=== PATIENT | male | born 1965 ===

== ENCOUNTER 2018-05-10 12:58 | Inpatient (IN) | payer MEDICAID, OTHER ==
[2018-05-10] MEDS ORDERED: Dexamethasone 10 MG in Sodium Chloride 0.9% 50 ML IV ONE (13:49)
[2018-05-10 14:25] LABS: BASO % 0.4 % (0.0-2.0); EOS # 0.1 K/uL (0.0-0.7); HEMOGLOBIN 14.3 g/dL (12.0-18.0); LYMPH # 0.9 K/uL (1.0-4.3); LYMPH % 14.2 % (20.0-40.0); MEAN CORPUSCULAR HEMOGLOBIN 31.7 pg (27.0-31.0); MEAN CORPUSCULAR HGB CONC 34.5 g/dL (33.0-37.0); MEAN PLATELET VOLUME 8.1 fl (7.2-11.7); MONO # 0.7 K/uL (0.0-0.8); MONO % 11.1 % (0.0-10.0); NEUT # 4.9 K/uL (1.8-7.0); NEUT % 72.3 % (50.0-75.0); RBC 4.52 Mil/uL (4.40-5.90); RED CELL DISTRIBUTION WIDTH 13.6 % (11.5-14.5); WHITE BLOOD COUNT 6.7 K/uL (4.8-10.8)
[2018-05-10 14:28] LABS: INR 0.9; PROTHROMBIN TIME 10.4 Seconds (9.8-13.1)
[2018-05-10 14:33] LABS: BLOOD UREA NITROGEN 21 mg/dl (9-20); CALCIUM 9.2 mg/dL (8.4-10.2); GFR NON-AFRICAN AMERICAN > 60
--- NOTE | 2018-05-10 15:45 | MRI ---
Date of service: 05/10/2018 PROCEDURE: MR LUMBAR SPINE WITHOUT CONTRAST HISTORY: cord compression COMPARISON: None available. TECHNIQUE: Multiecho multiplanar sequences were performed through the lumbar spine without the use of intravenous contrast. FINDINGS: Normal lumbar lordosis. Vertebral body heights are preserved. Marrow signal unremarkable. Conus medullaris unremarkable at the level of T12 Paraspinal soft tissues are unremarkable. T12-L1: No disc herniation, spinal canal stenosis or neural foraminal narrowing. L1-2: No disc herniation, spinal canal stenosis or neural foraminal narrowing. L2-3: No disc herniation, spinal canal stenosis or neural foraminal narrowing. L3-4: Mild degenerative disc changes noted. Small posterior disc bulge noted. No disc herniation, spinal canal stenosis or neural foraminal narrowing. L4-5: Mild degenerative disc changes. Small posterior disc bulge noted contains small focus of high attenuation likely represent annular tear. No disc herniation, spinal canal stenosis or neural foraminal narrowing. L5-S1: Small posterior disc bulge. [place]-pfskgpsw degenerative disc changes and mild narrowing of the intervertebral disc space. No disc herniation, spinal canal stenosis or neural foraminal narrowing. OTHER FINDINGS: None. IMPRESSION: No evidence of significant spinal or neural foraminal narrowing Irxi-wi-notznhoz degenerative disc changes. Small posterior disc bulge at L3-L4, L4-L5 and L5-S1 without evidence of significant spinal or neural foraminal narrowing. No evidence of compression on the conus medullaris.
--- NOTE | 2018-05-10 16:48 | ED PDOC ---
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 NOTES URINARY HESITANCE. DENIES ANY FREQUENCY/BURNING. NOTES NUMBNESS AND WEAKNESS TO RIGHT LEG NEW SINCE YESTERDAY.) Past Medical History Reviewed: Historical Data, Nursing Documentation, Vital Signs Vital Signs: Last Vital Signs Temp 98.4 F 05/10/18 13:08 Pulse 88 05/10/18 13:08 Resp 20 05/10/18 13:08 BP 160/71 H 05/10/18 13:08 Pulse Ox 98 05/10/18 13:08 - Family History Family History: States: No Known Family Hx - Home Medications Home Medications: Ambulatory Orders Medication Instructions Recorded No Known Home Med 05/10/18 - Allergies Allergies/Adverse Reactions: Allergies Allergy/AdvReac Type Severity Reaction Status Date / Time No Known Allergies Allergy Verified 05/10/18 13:08 Review of Systems ROS Statement: Except As Marked, All Systems Reviewed And Found Negative Physical Exam - Reviewed Nursing Documentation Reviewed: Yes Vital Signs Reviewed: Yes - Physical Exam Appears: Positive for: Well, Non-toxic, No Acute Distress Head Exam: Positive for: ATRAUMATIC, NORMAL INSPECTION, NORMOCEPHALIC Skin: Positive for: Normal Color, Warm, DRY Eye Exam: Positive for: EOMI, Normal appearance, PERRL ENT: Positive for: Normal ENT Inspection Neck: Positive for: Normal, Painless ROM Cardiovascular/Chest: Positive for: Regular Rate, Rhythm Respiratory: Positive for: CNT, Normal Breath Sounds Gastrointestinal/Abdominal: Positive for: Normal Exam, Soft Back: Positive for: Normal Inspection Rectal: Positive for: Other (PATIENT NOTEDS NUMBNESS CYNTHIA-RECTAL REGION.) Extremity: Positive for: Normal ROM, Other (WEAKNESS NOTED RIGHT LOWER EXTREMITY WITH DORSOFLEXION/PLANTARFLEXION.) Neurologic/Psych: Positive for: Alert, Oriented - Laboratory Results Result Diagrams: 05/10/18 14:10 05/10/18 14:10 - ECG O2 Sat by Pulse Oximetry: 98 - Progress ED Course And Treament: INITIAL BLADDE SCAN 291ML DECADRON 10 MG IV X 1 DOSE IMPRESSION: No evidence of significant spinal or neural foraminal narrowing Uayv-ru-vttiugge degenerative disc changes. Small posterior disc bulge at L3-L4, L4-L5 and L5-S1 without evidence of significant spinal or neural foraminal narrowing. No evidence of compression on the conus medullaris. MRI OBTAINED IN ED: GARNER CATHETER PLACED PATIENT STILL UNABLE TO URINATE. 1600 CC URINE NOTED IN GARNER CATHETER D/W DR. BURGOS. RECOMMENDS ADMISSION FOR MRI OF BRAIN AND T SPINE. WE WILL CT HEAD/T SPINE AT THIS TIME. d/w dr. armstrong d/w dr. Sheehan at request of Dr. Armstrong. He has reviewed films and notes no cord compression on studies. Disposition - Clinical Impression Clinical Impression: Urinary retention, Paresthesia, Right leg weakness, Back pain - Patient ED Disposition Is Patient to be Admitted: No - Disposition Disposition Time: 18:13 Condition: FAIR - Pt Status Changed To: Hospital Disposition Of: Observation
[2018-05-10 16:52] LABS: SQUAMOUS EPITHIAL < 1 /hpf (0-5); URINE BACTERIA RARE (<OCC); URINE BILIRUBIN NEGATIVE (NEGATIVE); URINE BLOOD NEGATIVE (NEGATIVE); URINE CLARITY SLIGHTY-CLOUDY (Clear); URINE COLOR YELLOW (YELLOW); URINE GLUCOSE (UA) NEG (Normal); URINE LEUKOCYTE ESTERASE NEG Leu/uL (Negative); URINE PROTEIN NEGATIVE (NEGATIVE)
--- NOTE | 2018-05-10 18:01 | CT ---
Date of service: 05/10/2018 PROCEDURE: CT HEAD WITHOUT CONTRAST. HISTORY: LEG WEAKNESS COMPARISON: None available. TECHNIQUE: Axial computed tomography images were obtained through the head/brain without intravenous contrast. Radiation dose: Total exam DLP = 885.7 mGy-cm. This CT exam was performed using one or more of the following dose reduction techniques: Automated exposure control, adjustment of the mA and/or kV according to patient size, and/or use of iterative reconstruction technique. FINDINGS: HEMORRHAGE: No intracranial hemorrhage. BRAIN: No mass effect or edema. No atrophy or chronic microvascular ischemic changes. VENTRICLES: Unremarkable. No hydrocephalus. CALVARIUM: Unremarkable. PARANASAL SINUSES: Bilateral ethmoid and maxillary sinus mucosal thickening. MASTOID AIR CELLS: Unremarkable as visualized. No inflammatory changes. OTHER FINDINGS: None. IMPRESSION: No acute intracranial pathology. Sinus disease as described above.
--- NOTE | 2018-05-10 18:03 | CT ---
Date of service: 05/10/2018 PROCEDURE: CT Thoracic Spine without contrast HISTORY: RIGHT LEG WEAKNESS/URINARY RETENTION/LUMBAR PAIN COMPARISON: None available. TECHNIQUE: Axial computed tomography images were obtained of the thoracic spine without intravenous contrast. Coronal and sagittal reformatted images were created and reviewed. Radiation dose: Total exam DLP = 717.2 mGy-cm. This CT exam was performed using one or more of the following dose reduction techniques: Automated exposure control, adjustment of the mA and/or kV according to patient size, and/or use of iterative reconstruction technique. FINDINGS: VERTEBRAE: Unremarkable. No fracture. Normal alignment. DISCS/SPINAL CANAL/NEURAL FORAMINA: Within the limits of the CT technique, no disc herniation seen. No central canal or neural foraminal stenosis.. PARASPINAL SOFT TISSUES: Unremarkable. OTHER FINDINGS: Unremarkable. IMPRESSION: Unremarkable CT of the thoracic spine.
--- NOTE | 2018-05-10 18:37 | CP.PCM.PN ---
Subjective - Date & Time of Evaluation Date of Evaluation: 05/10/18 Time of Evaluation: 18:36 - Subjective Subjective: spoke to ER She told me hx I reviewed all available studies, CT Throacic and Lumbar MRI Lumbar all studies appear and read as normal Plese recall if any further w/u shows a lesion Objective - Vital Signs/Intake and Output Vital Signs (last 24 hours): Temp Pulse Resp BP Pulse Ox 98.5 F 69 17 150/82 97 05/10/18 18:31 05/10/18 18:31 05/10/18 18:31 05/10/18 18:31 05/10/18 18:31 - Labs Labs: 05/10/18 14:10 05/10/18 14:10 PT 10.4 Seconds (9.8-13.1) 05/10/18 14:10 INR 0.9 05/10/18 14:10 APTT 32.0 Seconds (25.6-37.1) 05/10/18 14:10
--- NOTE | 2018-05-10 19:26 | CP.PCM.HP ---
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 At that time he began having numbness/ parasthesia radiating down his right buttock and the entirety of his anterior and posterior right leg. He also began having left leg pain as well. He denies any saddle anesthesia however. In the ED, the patient was noted to have urinary retention and Lakhani catheter was inserted draining 1600 cc of urine. Stat MRI of the lumbar spine and CT thoracic spine were performed and Dexamethasone was given. There was disc hernation noted on lumbar MRI, however there was no cord compression identified. Both Neurology, Dr. Bolton, and neurosurgery, Dr. Sheehan, were consulted from the ED. At this time there is no surgical intervention planned. The patient is to be admitted for further observation and further management by neurology including MRI of thoracic spine in AM. Present on Admission - Present on Admission Any Indicators Present on Admission: No History of DVT/PE: No History of Uncontrolled Diabetes: No Review of Systems - Review of Systems Review of Systems: A 12 point review of systems was conducted and found to be negative other than what was mentioned in the HPI. Past Patient History - Infectious Disease Hx of Infectious Diseases: None - Past Medical History & Family History Past Medical History?: No Past Family History: Reviewed and not pertinent - Past Social History Smoking Status: Light Smoker < 10 Cigarettes Daily Alcohol: None Drugs: Denies - CARDIAC Hx Cardiac Disorders: No - PULMONARY Hx Respiratory Disorders: No Hx Asthma: No - NEUROLOGICAL Hx Neurological Disorder: No - ENDOCRINE/METABOLIC Hx Diabetes Mellitus Type 1: No Hx Diabetes Mellitus Type 2: No - MUSCULOSKELETAL/RHEUMATOLOGICAL Hx Musculoskeletal Disorders: No Hx Back Pain: No (No previous back pain before present illness) - GASTROINTESTINAL Hx Gastrointestinal Disorders: No - GENITOURINARY/GYNECOLOGICAL Hx Genitourinary Disorders: No Hx Hematuria: No Hx Incontinence: No Hx Prostate Problems: No - PSYCHIATRIC Hx Substance Use: No - SURGICAL HISTORY Hx Surgeries: Yes Other/Comment: left thumb amputation - ANESTHESIA Hx Anesthesia: Yes Hx Anesthesia Reactions: No Meds Allergies/Adverse Reactions: Allergies Allergy/AdvReac Type Severity Reaction Status Date / Time No Known Allergies Allergy Verified 05/10/18 13:08 Physical Exam - Additional Findings Additional findings: Physical exam: Constitutional- cooperative, awake, alert Head- NCAT, PERRL Eye- PERRL, EOMI ENT- normal exam, MMM. Neck- normal inspection, supple, no JVD Respiratory- CTAB, no wheezes rales rhonchi Cardiovascular- RRR, +S1, +S2 no MRG GI/Abdominal- normal bowel sounds, soft, no mass, no hsm Skin- warm, dry Extremities Exam- normal capillary refill, normal inspection. L thumb partial amputation Neurological Exam- + RLE sensation diminished both anteriorly and posteriorly. + right buttock sensation diminished. 5/5 muscle strength x 4 extremities. alert , awake, oriented Psych- normal mood, normal affect Results - Vital Signs Recent Vital Signs: Last Vital Signs Temp 98.4 F 05/10/18 13:08 Pulse 88 05/10/18 13:08 Resp 20 05/10/18 13:08 BP 160/71 H 05/10/18 13:08 Pulse Ox 98 05/10/18 18:15 - Labs Result Diagrams: 05/10/18 14:10 05/10/18 14:10 Labs: Laboratory Results - last 24 hr 05/10/18 05/10/18 05/10/18 14:10 14:10 14:10 WBC 6.7 RBC 4.52 Hgb 14.3 Hct 41.6 MCV 92.0 MCH 31.7 H MCHC 34.5 RDW 13.6 Plt Count 251 MPV 8.1 Neut % (Auto) 72.3 Lymph % (Auto) 14.2 L [place] % (Auto) 11.1 H Eos % (Auto) 2.0 Baso % (Auto) 0.4 Neut # (Auto) 4.9 Lymph # (Auto) 0.9 L [place] # (Auto) 0.7 Eos # (Auto) 0.1 Baso # (Auto) 0.0 PT 10.4 INR 0.9 APTT 32.0 Sodium 142 Potassium 3.8 Chloride 110 H Carbon Dioxide 24 Anion Gap 12 BUN 21 H Creatinine 0.5 L Est GFR ( Amer) > 60 Est GFR (Non-Af Amer) > 60 Random Glucose 108 Calcium 9.2 Urine Color Urine Clarity Urine pH Ur Specific [place] Urine Protein Urine Glucose (UA) Urine Ketones Urine Blood Urine Nitrate Urine Bilirubin Urine Urobilinogen Ur Leukocyte Esterase Urine RBC (Auto) Urine Microscopic WBC Ur Squamous Epith Cells Urine Bacteria Blood Type Blood Type Confirm Antibody Screen BBK History Checked 05/10/18 05/10/18 05/10/18 14:10 15:14 16:43 WBC RBC Hgb Hct MCV MCH MCHC RDW Plt Count MPV Neut % (Auto) Lymph % (Auto) [place] % (Auto) Eos % (Auto) Baso % (Auto) Neut # (Auto) Lymph # (Auto) [place] # (Auto) Eos # (Auto) Baso # (Auto) PT INR APTT Sodium Potassium Chloride Carbon Dioxide Anion Gap BUN Creatinine Est GFR ( Amer) Est GFR (Non-Af Amer) Random Glucose Calcium Urine Color Yellow Urine Clarity Slighty-cloudy Urine pH 6.0 Ur Specific [place] 1.026 Urine Protein Negative Urine Glucose (UA) Neg Urine Ketones Negative Urine Blood Negative Urine Nitrate Negative Urine Bilirubin Negative Urine Urobilinogen 2.0 Ur Leukocyte Esterase Neg Urine RBC (Auto) 3 Urine Microscopic WBC 1 Ur Squamous Epith Cells < 1 Urine Bacteria Rare Blood Type O POSITIVE Blood Type Confirm O POSITIVE Antibody Screen Negative BBK History Checked No verified bt Assessment & Plan - Assessment and Plan (Free Text) Plan: 52 yo male with no significant past medical history who presented today with the complaint of two days of bilateral lower back pain 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 At that time he began having numbness/ parasthesia radiating down his right buttock and the entirety of his anterior and posterior right leg. He also began having left leg pain as well. He denies any saddle anesthesia however. In the ED, the patient was noted to have urinary retention and Lakhani catheter was inserted draining 1600 cc of urine. Stat MRI of the lumbar spine and CT thoracic spine were performed and Dexamethasone was given. There was disc hernation noted on lumbar MRI, however there was no cord compression identified. Both Neurology, Dr. Bolton, and neurosurgery, Dr. Sheehan, were consulted from the ED. At this time there is no surgical intervention planned. The patient is to be admitted for further observation and further management by neurology including MRI of thoracic spine in AM. 1) Right leg numbness/pain with urinary retention, with disc herniations noted - Admit to med/surg - Consultation with neurology, Dr. Bolton - consultation with neurosurgery, Dr. Sheehan- no surgical intervention planned at this time. Images were reviewed - Neuro checks q 4 hours - Analgesia - MRI thoracic spine in AM 2) DVT prophylaxis - SCDs
[2018-05-11] MEDS: Oxycodone/Acetaminophen 5/325 mg Tab PO PRN (01:28)
[2018-05-11 08:34] LABS: HEMOGLOBIN 14.7 g/dL (12.0-18.0); MEAN CELL VOLUME 91.3 fl (80.0-94.0); MEAN CORPUSCULAR HEMOGLOBIN 31.5 pg (27.0-31.0); MEAN CORPUSCULAR HGB CONC 34.5 g/dL (33.0-37.0); RBC 4.66 Mil/uL (4.40-5.90); RED CELL DISTRIBUTION WIDTH 13.2 % (11.5-14.5); WHITE BLOOD COUNT 8.2 K/uL (4.8-10.8)
[2018-05-11 09:03] LABS: BLOOD UREA NITROGEN 15 mg/dl (9-20); CALCIUM 9.4 mg/dL (8.4-10.2); GFR NON-AFRICAN AMERICAN > 60
--- NOTE | 2018-05-11 11:13 | MRI ---
Date of service: 05/11/2018 PROCEDURE: MRI BRAIN WITHOUT CONTRAST HISTORY: Right leg weakness COMPARISON: Noncontrast head CT from 05/10/2018. TECHNIQUE: Multiplanar, multisequence MR images of the brain were obtained without intravenous contrast enhancement. FINDINGS: HEMORRHAGE: None DWI: No evidence of an acute or early subacute infarction. BRAIN PARENCHYMA: There are minimal chronic microangiopathic changes. There is no mass, mass effect or abnormal extra-axial fluid collection. There is no territorial infarction. The midline sagittal structures are normal. VENTRICLES: The ventricles are normal in size, shape and configuration. CRANIUM: There is normal bone marrow signal pattern. ORBITS: Grossly unremarkable. PARANASAL SINUSES/MASTOIDS: There is mild mucosal thickening in the paranasal sinuses, worse in the ethmoid air cells and retention cysts/polyps in the maxillary sinuses. The mastoid air cells are clear. VASCULAR SYSTEM: There are normal signal voids in the larger intracranial arteries. OTHER FINDINGS: None. IMPRESSION: No acute intracranial abnormality. Minimal chronic microangiopathic changes. Chronic sinusitis, worse in the maxillary sinuses.
--- NOTE | 2018-05-11 12:00 | MRI ---
Date of service: 05/11/2018 PROCEDURE: MR THORACIC SPINE WITHOUT CONTRAST HISTORY: Back pain, right leg weakness COMPARISON: None available. TECHNIQUE: Multiecho multiplanar sequences were performed through the thoracic spine without the use of intravenous contrast. FINDINGS: ALIGNMENT: There is normal alignment of the thoracic vertebral bodies. Normal limits normal thoracic kyphosis. VERTEBRA: Vertebral body height are preserved. MARROW: Marrow signal is within normal limits. PARASPINAL SOFT TISSUES: The paraspinous soft tissues are normal. CORD: The upper and mid thoracic cord is normal in contour, caliber and has normal intrinsic signal. The conus medullaris terminates at a normal level. There is segmental abnormal T2 hyperintense signal in the distal thoracic cord at T11. DISCS: Mild degenerative disc disease in the lower thoracic spine without disc herniation, spinal canal stenosis, or neuroforaminal narrowing. OTHER FINDINGS: None. IMPRESSION: Segmental abnormal signal in the distal thoracic cord at T11, nonspecific and may represent demyelination, myelitis, ischemia or gliosis. Contrast-enhanced MRI may be helpful for further characterization and is recommended if clinically indicated.
--- NOTE | 2018-05-11 14:29 | CP.PCM.PN ---
Subjective - Date & Time of Evaluation Date of Evaluation: 05/11/18 Time of Evaluation: 14:28 - Subjective Subjective: reviewed MR of T-spine and brain finding in t-spine most likely represents demyelnation such as transverse myelitis not surgical issue, as per neurology Objective - Vital Signs/Intake and Output Vital Signs (last 24 hours): Temp Pulse Resp BP Pulse Ox 98.5 F 86 20 122/70 99 05/11/18 08:02 05/11/18 08:02 05/11/18 08:02 05/11/18 08:02 05/11/18 08:02 - Medications Medications: Current Medications Acetaminophen (Tylenol 325mg Tab) 650 mg PO Q6 PRN PRN Reason: Pain, Mild (1-3) Last Admin: 05/10/18 19:47 Dose: 650 mg Dexamethasone (Decadron Inj) 8 mg IVP DAILY STEPHANIE Ondansetron HCl (Zofran Inj) 4 mg IVP Q6 PRN PRN Reason: Nausea/Vomiting Oxycodone/Acetaminophen (Percocet 5/325 Mg Tab) 1 tab PO Q4 PRN PRN Reason: Pain, moderate (4-7) Stop: 05/13/18 18:51 Last Admin: 05/11/18 01:28 Dose: 1 tab - Labs Labs: 05/11/18 08:17 05/11/18 08:17 PT 10.4 Seconds (9.8-13.1) 05/10/18 14:10 INR 0.9 05/10/18 14:10 APTT 32.0 Seconds (25.6-37.1) 05/10/18 14:10
--- NOTE | 2018-05-11 15:46 | CP.PCM.PN ---
Subjective - Date & Time of Evaluation Date of Evaluation: 05/11/18 Time of Evaluation: 13:00 - Subjective Subjective: Patient was seen and examined at bedside. The patient is complaining of no muscle strength in the right lower extremity, worse than yesterday. Paresthesias in the right extremity have improved. Lower back pain improved but still present. No other new complaints overnight. No saddle anesthesia. Objective - Vital Signs/Intake and Output Vital Signs (last 24 hours): Temp Pulse Resp BP Pulse Ox 98.5 F 86 20 122/70 99 05/11/18 08:02 05/11/18 08:02 05/11/18 08:02 05/11/18 08:02 05/11/18 08:02 - Medications Medications: Current Medications Acetaminophen (Tylenol 325mg Tab) 650 mg PO Q6 PRN PRN Reason: Pain, Mild (1-3) Last Admin: 05/10/18 19:47 Dose: 650 mg Dexamethasone (Decadron Inj) 8 mg IVP DAILY STEPHANIE Ondansetron HCl (Zofran Inj) 4 mg IVP Q6 PRN PRN Reason: Nausea/Vomiting Oxycodone/Acetaminophen (Percocet 5/325 Mg Tab) 1 tab PO Q4 PRN PRN Reason: Pain, moderate (4-7) Stop: 05/13/18 18:51 Last Admin: 05/11/18 01:28 Dose: 1 tab - Labs Labs: 05/11/18 08:17 05/11/18 08:17 PT 10.4 Seconds (9.8-13.1) 05/10/18 14:10 INR 0.9 05/10/18 14:10 APTT 32.0 Seconds (25.6-37.1) 05/10/18 14:10 - Additional Findings Additional findings: Physical exam: Constitutional- cooperative, awake, alert Head- NCAT, PERRL Eye- PERRL, EOMI ENT- normal exam, MMM. Neck- normal inspection, supple, no JVD Respiratory- CTAB, no wheezes rales rhonchi Cardiovascular- RRR, +S1, +S2 no MRG GI/Abdominal- normal bowel sounds, soft, no mass, no hsm Skin- warm, dry Extremities Exam- normal capillary refill, normal inspection. L thumb partial amputation Neurological Exam- + RLE sensation diminished both anteriorly and posteriorly but present. Paresthesias are improved. + right buttock sensation diminished. 0/ 5 muscle strength in the right lower extremity. 5/5 muscle strength in other 3 extremities without neurological deficits. CN II-XII intact. 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 At that time he began having numbness/ parasthesia radiating down his right buttock and the entirety of his anterior and posterior right leg. He also began having left leg pain as well. He denies any saddle anesthesia however. In the ED, the patient was noted to have urinary retention and Lakhani catheter was inserted draining 1600 cc of urine. Stat MRI of the lumbar spine and CT thoracic spine were performed and Dexamethasone was given. There was disc hernation noted on lumbar MRI, however there was no cord compression identified. Both Neurology, Dr. Bolton, and neurosurgery, Dr. Sheehan, were consulted from the ED. At this time there is no surgical intervention planned. MRI thoracic spine shows evidence of demyelinating process. 1) Right leg numbness/pain with acute urinary retention, with disc herniations noted. Now with motor paralysis of right lower extremity. DDX: Transverse myelitis? Multiple sclerosis? - Admit to med/surg - Consultation with neurology, Dr. Jimenez. Case discussed at length and images reviewed. - consultation with neurosurgery, Dr. Sheehan- no surgical intervention planned at this time. Images were reviewed - Neuro checks q 8 hours - Analgesia - Continue Lakhani catheter for now due to urinary retention - MRI thoracic spine Impression: Segmental abnormal signal in the distal thoracic cord at T11, nonspecific and may represent demyelination, myelitis, ischemia, or gliosis. - MRI lumbar spine Impression: No evidence of significant spinal or neural foraminal narrowing. Mild to moderate degenerative disc changes. Small posterior disc bulge at L3-L4, L4-L5, and L5-S1 without evidence of significant spinal or neural foraminal narrowing. No evidence of compression on the conus medullaris - Brain MRI: No acute intracranial abnormality. Minimal chronic microangiopathic changes. Chronic sinusitis, worse in the maxillary sinuses - As per Dr. Jimenez, will start Dexamethasone 8 mg IV daily - Physical therapy, otherwise bed rest. 2) DVT prophylaxis - SCDs
--- NOTE | 2018-05-11 17:41 | CP.PCM.CON ---
History of Present Illness - History of Present Illness History of Present Illness: Mr. 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 He suddenly started to have numbness and paresthesias radiating down his right buttock to his anterior and posterior right leg, with 10/10 left leg pain. There was no fecal or urinary incontinence. As per the chart and note: "In the ED, the patient was noted to have urinary retention and Lakhani catheter was inserted draining 1600 cc of urine. Stat MRI of the lumbar spine and CT thoracic spine were performed and Dexamethasone was given. There was disc hernation noted on lumbar MRI, however there was no cord compression identified. Both Neurology, Dr. Bolton, and neurosurgery, Dr. Sheehan, were consulted from the ED. At this time there is no surgical intervention planned. The patient is to be admitted for further observation and further management by neurology including MRI of thoracic spine in AM. " On exam: AAOX3. PERRL. Cn 2-12 normal. Speech fluent. EOMI. motor: right leg weaker than left at 3/5 quads and hams, no patellar reflex present. left leg is 4/5, with more strength and effort in his distal left leg movements. +2 dtr in all other areas. Decreased ankle jerk in bilateral feet. There is no sensory level appreciated. gait is hemiplegic and guarded. no clonus. Past Patient History - Infectious Disease Hx of Infectious Diseases: None - Past Medical History & Family History Past Medical History?: No - Past Social History Smoking Status: Light Smoker < 10 Cigarettes Daily - CARDIAC Hx Cardiac Disorders: No - PULMONARY Hx Respiratory Disorders: No - NEUROLOGICAL Hx Neurological Disorder: No - HEENT Hx HEENT Problems: No - RENAL Hx Chronic Kidney Disease: No - ENDOCRINE/METABOLIC Hx Endocrine Disorders: No - HEMATOLOGICAL/ONCOLOGICAL Hx Blood Disorders: No Hx AIDS: No Hx Human Immunodeficiency Virus (HIV): No - INTEGUMENTARY Hx Dermatological Problems: No - MUSCULOSKELETAL/RHEUMATOLOGICAL Hx Musculoskeletal Disorders: No Hx Falls: No - GASTROINTESTINAL Hx Gastrointestinal Disorders: No - GENITOURINARY/GYNECOLOGICAL Hx Genitourinary Disorders: No - PSYCHIATRIC Hx Psychophysiologic Disorder: No Hx Substance Use: No - SURGICAL HISTORY Hx Surgeries: Yes Other/Comment: left thumb partial amputation. left palm surgery/grafting( injured from accident) - ANESTHESIA Hx Anesthesia: Yes Hx Anesthesia Reactions: No Hx Malignant Hyperthermia: No Meds Allergies/Adverse Reactions: Allergies Allergy/AdvReac Type Severity Reaction Status Date / Time No Known Allergies Allergy Verified 05/10/18 13:08 - Medications Medications: Current Medications Acetaminophen (Tylenol 325mg Tab) 650 mg PO Q6 PRN PRN Reason: Pain, Mild (1-3) Last Admin: 05/10/18 19:47 Dose: 650 mg Dexamethasone (Decadron Inj) 8 mg IVP DAILY STEPHANIE Last Admin: 05/11/18 16:00 Dose: 8 mg Ondansetron HCl (Zofran Inj) 4 mg IVP Q6 PRN PRN Reason: Nausea/Vomiting Oxycodone/Acetaminophen (Percocet 5/325 Mg Tab) 1 tab PO Q4 PRN PRN Reason: Pain, moderate (4-7) Stop: 05/13/18 18:51 Last Admin: 05/11/18 01:28 Dose: 1 tab Results - Vital Signs Recent Vital Signs: Last Vital Signs Temp 98 F 05/11/18 16:37 Pulse 72 05/11/18 16:37 Resp 18 05/11/18 16:37 BP 139/84 05/11/18 16:37 Pulse Ox 96 05/11/18 16:37 - Labs Result Diagrams: 05/12/18 05:50 05/12/18 05:50 Labs: Laboratory Results - last 24 hr 05/11/18 05/11/18 08:17 08:17 WBC 8.2 RBC 4.66 Hgb 14.7 Hct 42.5 MCV 91.3 MCH 31.5 H MCHC 34.5 RDW 13.2 Plt Count 277 Sodium 137 Potassium 3.9 Chloride 102 Carbon Dioxide 24 Anion Gap 15 BUN 15 Creatinine 0.5 L Est GFR ( Amer) > 60 Est GFR (Non-Af Amer) > 60 Random Glucose 102 Calcium 9.4 Assessment & Plan - Assessment and Plan (Free Text) Assessment: MRI THoracic spine: shows increased signal at T1 that is read as possible demyelination. MRI Brain: normal. MRI L/S spine: normal. A/P: 52 yr old male with most likely transverse myelitis, differential of Multiple sclerosis first presentation, wtih neurogenic bladder. Plan: 1. HIV testing 2. B12 and methylmallonic acid level 3. paraneoplastic syndrome workup: anti hu, anti ro, anti la 4. Lumbar puncture needed. 5. bedrest 6. Please start decadron at 10 mg iv q 12 hours 7. gi prophylaxis 8. Start acyclovir at [address] mg bid. Thank you Dr. sheth
--- NOTE | 2018-05-12 00:35 | CP.PCM.CON ---
History of Present Illness - History of Present Illness History of Present Illness: urology. Pt seen for acute urine retention. he is 52 yrs with no prior urologic history. His story was while at work he felt a back followed by a sharp shock sensation which led to immediate leg weakness and loss of strength in both lower extremities and a total pelvic numbness and consequent urine retention Since then he has been unable to void. As this is most likely a neurologic related urine retention I would not attempt to remove schafer cathater until such time as he is at least able to ambulate on his own. will follow as needed Past Patient History - Infectious Disease Hx of Infectious Diseases: None - Past Medical History & Family History Past Medical History?: No - Past Social History Smoking Status: Light Smoker < 10 Cigarettes Daily - CARDIAC Hx Cardiac Disorders: No - PULMONARY Hx Respiratory Disorders: No - NEUROLOGICAL Hx Neurological Disorder: No - HEENT Hx HEENT Problems: No - RENAL Hx Chronic Kidney Disease: No - ENDOCRINE/METABOLIC Hx Endocrine Disorders: No - HEMATOLOGICAL/ONCOLOGICAL Hx Blood Disorders: No Hx AIDS: No Hx Human Immunodeficiency Virus (HIV): No - INTEGUMENTARY Hx Dermatological Problems: No - MUSCULOSKELETAL/RHEUMATOLOGICAL Hx Musculoskeletal Disorders: No Hx Falls: No - GASTROINTESTINAL Hx Gastrointestinal Disorders: No - GENITOURINARY/GYNECOLOGICAL Hx Genitourinary Disorders: No - PSYCHIATRIC Hx Psychophysiologic Disorder: No Hx Substance Use: No - SURGICAL HISTORY Hx Surgeries: Yes Other/Comment: left thumb partial amputation. left palm surgery/grafting( injured from accident) - ANESTHESIA Hx Anesthesia: Yes Hx Anesthesia Reactions: No Hx Malignant Hyperthermia: No Meds Allergies/Adverse Reactions: Allergies Allergy/AdvReac Type Severity Reaction Status Date / Time No Known Allergies Allergy Verified 05/10/18 13:08 - Medications Medications: Current Medications Acetaminophen (Tylenol 325mg Tab) 650 mg PO Q6 PRN PRN Reason: Pain, Mild (1-3) Last Admin: 05/10/18 19:47 Dose: 650 mg Acyclovir (Zovirax) 800 mg PO BID STEPHANIE PRN Reason: Protocol Last Admin: 05/11/18 22:02 Dose: 800 mg Dexamethasone (Decadron Inj) 10 mg IVP Q12H STEPHANIE Last Admin: 05/11/18 22:02 Dose: 10 mg Ondansetron HCl (Zofran Inj) 4 mg IVP Q6 PRN PRN Reason: Nausea/Vomiting Oxycodone/Acetaminophen (Percocet 5/325 Mg Tab) 1 tab PO Q4 PRN PRN Reason: Pain, moderate (4-7) Stop: 05/13/18 18:51 Last Admin: 05/11/18 01:28 Dose: 1 tab Pantoprazole Sodium (Protonix Ec Tab) 40 mg PO DAILY STEPHANIE Results - Vital Signs Recent Vital Signs: Last Vital Signs Temp 97.8 F 05/11/18 23:45 Pulse 78 05/11/18 23:45 Resp 20 05/11/18 23:45 BP 112/66 05/11/18 23:45 Pulse Ox 98 05/11/18 23:45 - Labs Result Diagrams: 05/11/18 08:17 05/11/18 08:17 Labs: Laboratory Results - last 24 hr 05/11/18 05/11/18 05/11/18 08:17 08:17 18:47 WBC 8.2 RBC 4.66 Hgb 14.7 Hct 42.5 MCV 91.3 MCH 31.5 H MCHC 34.5 RDW 13.2 Plt Count 277 Sodium 137 Potassium 3.9 Chloride 102 Carbon Dioxide 24 Anion Gap 15 BUN 15 Creatinine 0.5 L Est GFR ( Amer) > 60 Est GFR (Non-Af Amer) > 60 Random Glucose 102 Calcium 9.4 Vitamin B12 257 HIV-1 Ab Rapid Screen 05/11/18 18:47 WBC RBC Hgb Hct MCV MCH MCHC RDW Plt Count Sodium Potassium Chloride Carbon Dioxide Anion Gap BUN Creatinine Est GFR ( Amer) Est GFR (Non-Af Amer) Random Glucose Calcium Vitamin B12 HIV-1 Ab Rapid Screen Non reactive
[2018-05-12 06:34] LABS: HEMOGLOBIN 14.9 g/dL (12.0-18.0); MEAN CELL VOLUME 91.7 fl (80.0-94.0); MEAN CORPUSCULAR HEMOGLOBIN 31.6 pg (27.0-31.0); MEAN CORPUSCULAR HGB CONC 34.4 g/dL (33.0-37.0); RBC 4.73 Mil/uL (4.40-5.90); RED CELL DISTRIBUTION WIDTH 13.6 % (11.5-14.5); WHITE BLOOD COUNT 7.3 K/uL (4.8-10.8)
[2018-05-12 06:45] LABS: BLOOD UREA NITROGEN 17 mg/dl (9-20); CALCIUM 9.4 mg/dL (8.4-10.2); GFR NON-AFRICAN AMERICAN > 60
[2018-05-12] MEDS ORDERED: Povidone Iodine Topical 10% Sol ONE (08:15)
--- NOTE | 2018-05-12 09:09 | CP.PCM.PN ---
Subjective - Date & Time of Evaluation Date of Evaluation: 05/12/18 Time of Evaluation: 08:30 - Subjective Subjective: Called by primary team and neurology for LP. Patient was admitted for unexplained right leg weakness and numbness. There was urinary retention and constipation as well. Thoracic and lumbar MRI didn't show any significant lesions that would account for the presentation, and thus LP was deemed necessary. MRI studies and labs were reviewed. Patient already has lower back pain and right leg symptoms as described above prior to LP, although they seemed to be improving compared to yesterday. R/B/A were discussed with the patient, including post-dura puncture headache and possible nerve damage, and consent was placed in the chart. Patient was placed in a sitting position. The back was prepped and draped in the usual fashion and sterile technique was observed throughout the entire procedure. The L4-5 interlaminar space at the mid-line was palpated. The skin was then infiltrated with 1% lidocaine using a 25G needle. An 18G spinal needle was then inserted into this space until the intrathecal space was assessed. Approximately 8cc of initially turbid but then clear CSF was obtained and distributed into 4 separate tubes. Patient denied any pain or radicular symptoms during the entire procedure and tolerated it well. He was then returned to a supine position. Instruction given to the staff for bedrest in supine position, IVF for 24 hours @ 125cc/hr, and continual neuro checks. Objective - Vital Signs/Intake and Output Vital Signs (last 24 hours): Temp Pulse Resp BP Pulse Ox 97.7 F 65 20 111/61 96 05/12/18 08:08 05/12/18 08:08 05/12/18 08:08 05/12/18 08:08 05/12/18 08:08 - Medications Medications: Current Medications Acetaminophen (Tylenol 325mg Tab) 650 mg PO Q6 PRN PRN Reason: Pain, Mild (1-3) Last Admin: 05/10/18 19:47 Dose: 650 mg Acyclovir (Zovirax) 800 mg PO BID STEPHANIE PRN Reason: Protocol Last Admin: 05/11/18 22:02 Dose: 800 mg Dexamethasone (Decadron Inj) 10 mg IVP Q12H STE[facility]IE Last Admin: 05/11/18 22:02 Dose: 10 mg Ondansetron HCl (Zofran Inj) 4 mg IVP Q6 PRN PRN Reason: Nausea/Vomiting Oxycodone/Acetaminophen (Percocet 5/325 Mg Tab) 1 tab PO Q4 PRN PRN Reason: Pain, moderate (4-7) Stop: 05/13/18 18:51 Last Admin: 05/11/18 01:28 Dose: 1 tab Pantoprazole Sodium (Protonix Ec Tab) 40 mg PO DAILY STEPHANIE - Labs Labs: 05/12/18 05:50 05/12/18 05:50 PT 10.4 Seconds (9.8-13.1) 05/10/18 14:10 INR 0.9 05/10/18 14:10 APTT 32.0 Seconds (25.6-37.1) 05/10/18 14:10
[2018-05-12 09:31] LABS: FLUID TYPE SPINAL FLUID
[2018-05-12] MEDS: Pantoprazole 40 mg EC Tab PO SCH (10:29)
[2018-05-12 10:57] LABS: CSF APPEARANCE CLEAR/COLORLESS (CLEAR); CSF VOLUME 1 mL (0-1)
[2018-05-12 10:58] LABS: CSF MONO/MACROPHAGE 0 % (0-0)
--- NOTE | 2018-05-12 11:39 | CP.PCM.PN ---
Subjective - Date & Time of Evaluation Date of Evaluation: 05/12/18 Time of Evaluation: 11:30 - Subjective Subjective: Patient seen and examined bedside. Complains of RLE paresthesia , numbness and weakness. Back pain has improved and LLE pain has resolved . LLE almost back to normal. Hemodynamically stable, afebrile. No acute issues overnight Denies saddle anesthesia, able to pass flatus , no bowel movements Lakhani in place Underwent LP today by anesthesia Objective - Vital Signs/Intake and Output Vital Signs (last 24 hours): Temp Pulse Resp BP Pulse Ox 97.7 F 65 20 111/61 96 05/12/18 08:08 05/12/18 08:08 05/12/18 08:08 05/12/18 08:08 05/12/18 08:08 - Medications Medications: Current Medications Acetaminophen (Tylenol 325mg Tab) 650 mg PO Q6 PRN PRN Reason: Pain, Mild (1-3) Last Admin: 05/10/18 19:47 Dose: 650 mg Acyclovir (Zovirax) 800 mg PO BID [facility] PRN Reason: Protocol Last Admin: 05/12/18 10:28 Dose: 800 mg Dexamethasone (Decadron Inj) 10 mg IVP Q12H [facility] Last Admin: 05/12/18 10:28 Dose: 10 mg Ondansetron HCl (Zofran Inj) 4 mg IVP Q6 PRN PRN Reason: Nausea/Vomiting Oxycodone/Acetaminophen (Percocet 5/325 Mg Tab) 1 tab PO Q4 PRN PRN Reason: Pain, moderate (4-7) Stop: 05/13/18 18:51 Last Admin: 05/11/18 01:28 Dose: 1 tab Pantoprazole Sodium (Protonix Ec Tab) 40 mg PO DAILY [facility] Last Admin: 05/12/18 10:29 Dose: 40 mg - Labs Labs: 05/12/18 05:50 05/12/18 05:50 PT 10.4 Seconds (9.8-13.1) 05/10/18 14:10 INR 0.9 05/10/18 14:10 APTT 32.0 Seconds (25.6-37.1) 05/10/18 14:10 - Constitutional Appears: Non-toxic, No Acute Distress - Head Exam Head Exam: ATRAUMATIC, NORMAL INSPECTION, NORMOCEPHALIC - Eye Exam Eye Exam: EOMI, Normal appearance, PERRL Pupil Exam: NORMAL ACCOMODATION - ENT Exam ENT Exam: Mucous Membranes Moist, Normal Exam - Neck Exam Neck Exam: Full ROM, Normal Inspection - Respiratory Exam Respiratory Exam: Clear to Ausculation Bilateral, NORMAL BREATHING PATTERN. absent: Rales, Rhonchi, Wheezes - Cardiovascular Exam Cardiovascular Exam: REGULAR RHYTHM, RRR, +S1, +S2. absent: JVD - GI/Abdominal Exam GI & Abdominal Exam: Soft, Normal Bowel Sounds. absent: Distended, Guarding, Tenderness, Rebound - Rectal Exam Rectal Exam: Deferred - Extremities Exam Extremities Exam: Normal Capillary Refill, Normal Inspection. absent: Calf Tenderness, Pedal Edema - Back Exam Back Exam: Full ROM, NORMAL INSPECTION. absent: paraspinal tenderness, vertebral tenderness - Neurological Exam Neurological Exam: Alert, Awake, CN II-XII Intact, Oriented x3 Neuro motor strength exam: Left Upper Extremity: 5, Right Upper Extremity: 5, Left Lower Extremity: 5, Right Lower Extremity: 3 Additional comments: numbness to RLE babinsky absent - Psychiatric Exam Psychiatric exam: Normal Affect, Normal Mood - Skin Skin Exam: Dry, Intact, Normal Color, Warm Assessment and Plan - Assessment and Plan (Free Text) Assessment: 52 yo male with no significant past medical history presented with sudden complaint of two days of bilateral lower back pain 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 At that time he began having numbness/ parasthesia radiating down his right buttock and the entirety of his anterior and posterior right leg. He also began having left leg electric shooting pain pain. He denied any saddle anesthesia however unable to void .He also gave history of herniated disc and sciatica for the last 4 years on and off. In the ED, the patient was noted to have urinary retention and Lakhani catheter was inserted draining 1600 cc of urine.MRI of the lumbar spine and CT thoracic spine were performed and Dexamethasone was given. There was disc hernation noted on lumbar MRI, however there was no cord compression identified. Both Neurology and neurosurgery were consulted from the ED. At this time there is no surgical intervention planned. MRI thoracic spine showed some T11 lesion possible demyelinating process. 1. Right leg paresthesia ,weakness with acute urinary retention Unknown etiology at present but will need werner rule out Transverse myelitis vs Multiple sclerosis Neurology and neurosurfgery consults appreciated No surgical interventions at present Continue Dexamethasone LP preformed today . Will follow up cultures and paraneoplastric work up Continue Acyclovir IV Start PT Keep Lakhani in place for now 2. DVT prophylaxis SCDs
[2018-05-12] MEDS ORDERED: Iohexol 240 (50 ml) PO ONE (18:23)
[2018-05-12] MEDS: Oxycodone/Acetaminophen 5/325 mg Tab PO PRN (18:32)
[2018-05-13 06:38] LABS: HEMOGLOBIN 14.9 g/dL (12.0-18.0); MEAN CELL VOLUME 90.9 fl (80.0-94.0); MEAN CORPUSCULAR HEMOGLOBIN 31.2 pg (27.0-31.0); MEAN CORPUSCULAR HGB CONC 34.3 g/dL (33.0-37.0); RBC 4.79 Mil/uL (4.40-5.90); RED CELL DISTRIBUTION WIDTH 13.2 % (11.5-14.5); WHITE BLOOD COUNT 11.1 K/uL (4.8-10.8)
[2018-05-13 07:02] LABS: ALB/GLOB RATIO 1.2 (1.0-2.1); ALBUMIN 4.5 g/dL (3.5-5.0); ALT/SGPT 24 U/L (21-72); AST/SGOT 29 U/L (17-59); BLOOD UREA NITROGEN 18 mg/dl (9-20); CALCIUM 9.4 mg/dL (8.4-10.2); GFR NON-AFRICAN AMERICAN > 60
[2018-05-13] MEDS ORDERED: Sodium Chloride 0.9% 50 ML IV ONE (08:23)
[2018-05-13] MEDS ORDERED: Iohexol 300 100 ML IJ ONE (08:23)
--- NOTE | 2018-05-13 09:52 | CP.PCM.PN ---
<Joaquin Zepeda - Last Filed: 05/13/18 10:09> Subjective - Date & Time of Evaluation Date of Evaluation: 05/13/18 Time of Evaluation: 09:48 - Subjective Subjective: Mr. Ahmadi was seen and examined at the bedside. 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 Luna), complains of inability to pass bowel movements x 3 days. He further claims of decrease sensation below his right lower extremity. He further claims of feeling pins and needle in his right foot. He remains on schafer catheter draining to a clear yellow urine. The LP puncture site is clean no s/s bleeding. There was no untoward events overnight. Objective - Vital Signs/Intake and Output Vital Signs (last 24 hours): Temp Pulse Resp BP Pulse Ox 97.8 F 65 20 129/72 97 05/13/18 08:12 05/13/18 08:12 05/13/18 08:12 05/13/18 08:12 05/13/18 08:12 - Medications Medications: Current Medications Acetaminophen (Tylenol 325mg Tab) 650 mg PO Q6 PRN PRN Reason: Pain, Mild (1-3) Last Admin: 05/10/18 19:47 Dose: 650 mg Acyclovir (Zovirax) 800 mg PO BID [facility] PRN Reason: Protocol Last Admin: 05/12/18 16:03 Dose: 800 mg Dexamethasone (Decadron Inj) 10 mg IVP Q12H [facility] Last Admin: 05/12/18 21:05 Dose: 10 mg Ondansetron HCl (Zofran Inj) 4 mg IVP Q6 PRN PRN Reason: Nausea/Vomiting Oxycodone/Acetaminophen (Percocet 5/325 Mg Tab) 1 tab PO Q4 PRN PRN Reason: Pain, moderate (4-7) Stop: 05/13/18 18:51 Last Admin: 05/12/18 18:32 Dose: 1 tab Pantoprazole Sodium (Protonix Ec Tab) 40 mg PO DAILY [facility] Last Admin: 05/12/18 10:29 Dose: 40 mg - Labs Labs: 05/13/18 05:55 05/13/18 05:55 PT 10.4 Seconds (9.8-13.1) 05/10/18 14:10 INR 0.9 05/10/18 14:10 APTT 32.0 Seconds (25.6-37.1) 05/10/18 14:10 - Constitutional Appears: No Acute Distress - Head Exam Head Exam: NORMAL INSPECTION - Eye Exam Pupil Exam: PERRL - Extremities Exam Extremities Exam: Normal Capillary Refill Additional comments: decrease sensation and movement of the right lower extremity, + CMS - Neurological Exam Neurological Exam: Alert, Awake, Oriented x3 Neuro motor strength exam: Left Upper Extremity: 5, Right Upper Extremity: 5, Left Lower Extremity: 5, Right Lower Extremity: 2/1 Additional comments: alert, decrease sensation of the right lower extremity. Assessment and Plan (1) Myelitis Assessment & Plan: Continue all current medical regimen, Pending CT scan of the abdomen, methylmallonic acid level, paraneoplastic syndrome workup: anti hu, anti ro, anti la. Recommend to treat any electrolyte abnormalities, hydration. Status: Acute <Sheth,Gautami - Last Filed: 05/13/18 15:19> Objective - Vital Signs/Intake and Output Vital Signs (last 24 hours): Temp Pulse Resp BP Pulse Ox 97.8 F 65 20 129/72 97 05/13/18 08:12 05/13/18 08:12 05/13/18 08:12 05/13/18 08:12 05/13/18 08:12 - Medications Medications: Current Medications Acetaminophen (Tylenol 325mg Tab) 650 mg PO Q6 PRN PRN Reason: Pain, Mild (1-3) Last Admin: 05/10/18 19:47 Dose: 650 mg Acyclovir (Zovirax) 800 mg PO BID [facility] PRN Reason: Protocol Last Admin: 05/13/18 10:26 Dose: 800 mg Dexamethasone (Decadron Inj) 10 mg IVP Q12H [facility] Last Admin: 05/13/18 10:26 Dose: 10 mg Ondansetron HCl (Zofran Inj) 4 mg IVP Q6 PRN PRN Reason: Nausea/Vomiting Oxycodone/Acetaminophen (Percocet 5/325 Mg Tab) 1 tab PO Q4 PRN PRN Reason: Pain, moderate (4-7) Stop: 05/13/18 18:51 Last Admin: 05/12/18 18:32 Dose: 1 tab Pantoprazole Sodium (Protonix Ec Tab) 40 mg PO DAILY [facility] Last Admin: 05/13/18 10:26 Dose: 40 mg - Labs Labs: 05/13/18 05:55 05/13/18 05:55 PT 10.4 Seconds (9.8-13.1) 05/10/18 14:10 INR 0.9 05/10/18 14:10 APTT 32.0 Seconds (25.6-37.1) 05/10/18 14:10 Assessment and Plan - Assessment and Plan (Free Text) Assessment: Patient with transverse myelitis, which is not a spinal cord infarct, and may benefit from IVIG, and resulting in neurogenic bladder. after extensive discussion with administration and hematology, will attempt to pursue plasmapheresis. Plan: 1. call blood bank for plasmapheresis. 2. Continue solumedrol 1 gm IV daily. 3. Urology consult. Thank you Dr. sheth
[2018-05-13] MEDS: Pantoprazole 40 mg EC Tab PO SCH (10:26)
[2018-05-13 10:53] LABS: METHYLMALONIC ACID,SERUM 273 nmol/L (87-318)
--- NOTE | 2018-05-13 12:54 | CP.PCM.PN ---
Subjective - Date & Time of Evaluation Date of Evaluation: 05/13/18 Time of Evaluation: 11:00 - Subjective Subjective: Patient seen and examined bedside. Still with numbness and weakness to RLE.No BM but passing flatus Lakhani in place draining clear urine hemodynamically stable, afebrile Objective - Vital Signs/Intake and Output Vital Signs (last 24 hours): Temp Pulse Resp BP Pulse Ox 97.8 F 65 20 129/72 97 05/13/18 08:12 05/13/18 08:12 05/13/18 08:12 05/13/18 08:12 05/13/18 08:12 - Medications Medications: Current Medications Acetaminophen (Tylenol 325mg Tab) 650 mg PO Q6 PRN PRN Reason: Pain, Mild (1-3) Last Admin: 05/10/18 19:47 Dose: 650 mg Acyclovir (Zovirax) 800 mg PO BID [facility] PRN Reason: Protocol Last Admin: 05/13/18 10:26 Dose: 800 mg Dexamethasone (Decadron Inj) 10 mg IVP Q12H [facility] Last Admin: 05/13/18 10:26 Dose: 10 mg Ondansetron HCl (Zofran Inj) 4 mg IVP Q6 PRN PRN Reason: Nausea/Vomiting Oxycodone/Acetaminophen (Percocet 5/325 Mg Tab) 1 tab PO Q4 PRN PRN Reason: Pain, moderate (4-7) Stop: 05/13/18 18:51 Last Admin: 05/12/18 18:32 Dose: 1 tab Pantoprazole Sodium (Protonix Ec Tab) 40 mg PO DAILY [facility] Last Admin: 05/13/18 10:26 Dose: 40 mg - Labs Labs: 05/13/18 05:55 05/13/18 05:55 PT 10.4 Seconds (9.8-13.1) 05/10/18 14:10 INR 0.9 05/10/18 14:10 APTT 32.0 Seconds (25.6-37.1) 05/10/18 14:10 - Constitutional Appears: Non-toxic, No Acute Distress - Head Exam Head Exam: ATRAUMATIC, NORMAL INSPECTION, NORMOCEPHALIC - Eye Exam Eye Exam: EOMI, Normal appearance, PERRL Pupil Exam: NORMAL ACCOMODATION - ENT Exam ENT Exam: Mucous Membranes Moist, Normal Exam - Neck Exam Neck Exam: Full ROM, Normal Inspection - Respiratory Exam Respiratory Exam: Clear to Ausculation Bilateral, NORMAL BREATHING PATTERN. absent: Rales, Rhonchi, Wheezes - Cardiovascular Exam Cardiovascular Exam: REGULAR RHYTHM, RRR, +S1, +S2. absent: JVD - GI/Abdominal Exam GI & Abdominal Exam: Soft, Normal Bowel Sounds. absent: Distended, Guarding, Tenderness, Rebound - Rectal Exam Rectal Exam: Deferred - Extremities Exam Extremities Exam: Normal Capillary Refill, Normal Inspection. absent: Calf Tenderness, Joint Swelling, Pedal Edema, Tenderness - Neurological Exam Neurological Exam: Alert, Awake, CN II-XII Intact Neuro motor strength exam: Left Upper Extremity: 5, Right Upper Extremity: 5, Left Lower Extremity: 5, Right Lower Extremity: 3 Additional comments: numbness to RLE - Psychiatric Exam Psychiatric exam: Normal Affect, Normal Mood - Skin Skin Exam: Dry, Intact, Normal Color, Warm Assessment and Plan - Assessment and Plan (Free Text) Assessment: 52 yo male with no significant past medical history presented with sudden complaint of two days of bilateral lower back pain 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 At that time he began having numbness/ parasthesia radiating down his right buttock and the entirety of his anterior and posterior right leg. He also began having left leg electric shooting pain pain. He denied any saddle anesthesia however unable to void .He also gave history of herniated disc and sciatica for the last 4 years on and off. In the ED, patient was noted to have urinary retention and Lakhani catheter was inserted draining 1600 cc of urine.MRI of the lumbar spine and CT thoracic spine were performed and Dexamethasone was given. There was disc hernation noted on lumbar MRI, however there was no cord compression identified. Both Neurology and neurosurgery were consulted from the ED. At this time there is no surgical intervention planned. MRI thoracic spine showed some T11 lesion possible demyelinating process. At present still with numbness and weakness to RLE. 1. Right leg paresthesia ,weakness with acute urinary retention Unknown etiology at present but will need to rule out Transverse myelitis vs Multiple sclerosis Neurology and neurosurgery consults appreciated No surgical interventions at present Continue Dexamethasone LP preformed and was clear. Will follow up cultures and paraneoplastric work up Ordered CTchest abdomen and pelvis to rule out any malignancy Continue Acyclovir IV Start PT Keep Lakhani in place for now Discussed with neurology.Will start IVIgG infusion 2. DVT prophylaxis SCDs
--- NOTE | 2018-05-13 13:12 | CT ---
Date of service: 05/13/2018 PROCEDURE: CT Abdomen and Pelvis with contrast HISTORY: trasverse myelitis r/o paraneoplastic syndrome COMPARISON: comparison is made to the previous CT of the thoracic spine without contrast dated 05/10/2018 MRI of the lumbar spine dated 05/10/2018 TECHNIQUE: IV dose administered: 96 cc of Omnipaque 300. Axial and reformatted coronal and sagittal CT images of the chest abdomen and pelvis were obtained after IV and oral contrast administration. Radiation dose: Total exam DLP = 452.98 mGy-cm. FINDINGS: LOWER THORAX: No evidence of mass lesion or acute pathology at the lung bases. LIVER: Unremarkable. No gross lesion or ductal dilatation. GALLBLADDER AND BILE DUCTS: Unremarkable. PANCREAS: And kidneys. No evidence of lymphadenopathy in the abdomen and pelvis. SPLEEN: Unremarkable. ADRENALS: There is low-attenuation nodule at the left adrenal gland measures 2 centimeter with low average CT density is 24.4 Hounsfield unit, may represent incidental adenoma. The right adrenal glands grossly unremarkable. KIDNEYS AND URETERS: Unremarkable. No hydronephrosis. No solid mass. VASCULATURE: Unremarkable. No aortic aneurysm. BOWEL: Unremarkable. No obstruction. No gross mural thickening. Few scattered colonic diverticulosis seen without evidence of diverticulitis. APPENDIX: Normal appendix. PERITONEUM: Unremarkable. No free fluid. No free air. LYMPH NODES: Unremarkable. No enlarged lymph nodes. BLADDER: Diffuse urinary bladder wall thickening is noted. There is Lakhani catheter extending to the bladder. REPRODUCTIVE: Prostate is mildly enlarged BONES: No acute fracture. OTHER FINDINGS: None. IMPRESSION: 2 centimeter heterogeneous low density left adrenal nodule is noted may represent incidental adenoma. The possibility of malignant neoplasm is less likely. No evidence of mass lesion in the liver spleen and kidneys. No evidence of lymphadenopathy in the abdomen and pelvis.
--- NOTE | 2018-05-14 09:01 | CP.PCM.PN ---
Subjective - Date & Time of Evaluation Date of Evaluation: 05/14/18 Time of Evaluation: 08:58 - Subjective Subjective: Mr. Ahmadi was seen and examined at the bedside. He remains alert, oriented still complaining of right lower extremity weakness, sensation is diminished in comparison to his left lower extremity. He is made awake of the treatment of plasmapheresis for his disease condition and is agreeable. There was no untoward events overnight. Objective - Vital Signs/Intake and Output Vital Signs (last 24 hours): Temp Pulse Resp BP Pulse Ox 97.5 F L 65 18 107/63 98 05/14/18 08:07 05/14/18 08:07 05/14/18 08:07 05/14/18 08:07 05/14/18 08:07 Intake and Output: 05/14/18 05/14/18 06:59 18:59 Intake Total 500 Output Total 1800 Balance -1300 - Medications Medications: Current Medications Acetaminophen (Tylenol 325mg Tab) 650 mg PO Q6 PRN PRN Reason: Pain, Mild (1-3) Last Admin: 05/13/18 22:00 Dose: 650 mg Acyclovir (Zovirax) 800 mg PO BID STEPHANIE PRN Reason: Protocol Last Admin: 05/13/18 16:30 Dose: 800 mg Dexamethasone (Decadron Inj) 10 mg IVP Q12H [facility] Last Admin: 05/13/18 21:00 Dose: 10 mg Ondansetron HCl (Zofran Inj) 4 mg IVP Q6 PRN PRN Reason: Nausea/Vomiting Pantoprazole Sodium (Protonix Ec Tab) 40 mg PO DAILY [facility] Last Admin: 05/13/18 10:26 Dose: 40 mg - Labs Labs: 05/13/18 05:55 05/13/18 05:55 PT 10.4 Seconds (9.8-13.1) 05/10/18 14:10 INR 0.9 05/10/18 14:10 APTT 32.0 Seconds (25.6-37.1) 05/10/18 14:10 - Constitutional Appears: No Acute Distress - Head Exam Head Exam: NORMAL INSPECTION - Extremities Exam Additional comments: diminished sensation and weaker right lower extremity, able to repositioned himself in bed. Assessment and Plan (1) Myelitis Assessment & Plan: Case discussed with Dr. Jimenez, continue all current medical and physical therapies. Recommend plasmapheresis for treatment of transverse myelitis, pending anti hu, anti ro, anti la results. Status: Acute
[2018-05-14] MEDS: Pantoprazole 40 mg EC Tab PO SCH (09:32)
--- NOTE | 2018-05-14 11:11 | CP.PCM.PN ---
Subjective - Date & Time of Evaluation Date of Evaluation: 05/14/18 Time of Evaluation: 10:00 - Subjective Subjective: Patient was seen and examined bedside. Still with numbness and weakness to RLE. Feeling slightly improved . Hemodynamically stable, afebrile No acute issues overnight Denies darian chest pain SOB Lakhani in place No BM Objective - Vital Signs/Intake and Output Vital Signs (last 24 hours): Temp Pulse Resp BP Pulse Ox 97.5 F L 65 18 107/63 98 05/14/18 08:07 05/14/18 08:07 05/14/18 08:07 05/14/18 08:07 05/14/18 08:07 Intake and Output: 05/14/18 05/14/18 06:59 18:59 Intake Total 500 Output Total 1800 Balance -1300 - Medications Medications: Current Medications Acetaminophen (Tylenol 325mg Tab) 650 mg PO Q6 PRN PRN Reason: Pain, Mild (1-3) Last Admin: 05/13/18 22:00 Dose: 650 mg Acyclovir (Zovirax) 800 mg PO BID [facility]IE PRN Reason: Protocol Last Admin: 05/14/18 09:33 Dose: 800 mg Dexamethasone (Decadron Inj) 10 mg IVP Q12H [facility] Last Admin: 05/14/18 09:33 Dose: 10 mg Ondansetron HCl (Zofran Inj) 4 mg IVP Q6 PRN PRN Reason: Nausea/Vomiting Pantoprazole Sodium (Protonix Ec Tab) 40 mg PO DAILY [facility] Last Admin: 05/14/18 09:32 Dose: 40 mg - Labs Labs: 05/13/18 05:55 05/13/18 05:55 PT 10.4 Seconds (9.8-13.1) 05/10/18 14:10 INR 0.9 05/10/18 14:10 APTT 32.0 Seconds (25.6-37.1) 05/10/18 14:10 - Constitutional Appears: Non-toxic, No Acute Distress - Head Exam Head Exam: ATRAUMATIC, NORMAL INSPECTION, NORMOCEPHALIC - Eye Exam Eye Exam: EOMI, Normal appearance, PERRL Pupil Exam: NORMAL ACCOMODATION - ENT Exam ENT Exam: Mucous Membranes Moist, Normal Exam - Neck Exam Neck Exam: Full ROM, Normal Inspection - Respiratory Exam Respiratory Exam: Clear to Ausculation Bilateral, NORMAL BREATHING PATTERN. absent: Rales, Rhonchi, Wheezes - Cardiovascular Exam Cardiovascular Exam: REGULAR RHYTHM, RRR, +S1, +S2. absent: JVD - GI/Abdominal Exam GI & Abdominal Exam: Soft, Normal Bowel Sounds. absent: Guarding, Tenderness, Rebound - Rectal Exam Rectal Exam: Deferred - Extremities Exam Extremities Exam: Normal Capillary Refill, Normal Inspection. absent: Calf Tenderness, Pedal Edema - Back Exam Back Exam: NORMAL INSPECTION - Neurological Exam Neurological Exam: Alert, Awake, CN II-XII Intact, Oriented x3 Neuro motor strength exam: Left Upper Extremity: 5, Right Upper Extremity: 5, Left Lower Extremity: 5, Right Lower Extremity: 3 - Psychiatric Exam Psychiatric exam: Normal Affect, Normal Mood - Skin Skin Exam: Dry, Intact, Normal Color, Warm Assessment and Plan - Assessment and Plan (Free Text) Assessment: 52 yo male with no significant past medical history presented with sudden complaint of two days of bilateral lower back pain 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 At that time he began having numbness/ parasthesia radiating down his right buttock and the entirety of his anterior and posterior right leg. He also began having left leg electric shooting pain pain. He denied any saddle anesthesia however unable to void .He also gave history of herniated disc and sciatica for the last 4 years on and off. In the ED, patient was noted to have urinary retention and Lakhani catheter was inserted draining 1600 cc of urine.MRI of the lumbar spine and CT thoracic spine were performed and Dexamethasone was given. There was disc hernation noted on lumbar MRI, however there was no cord compression identified. Both Neurology and neurosurgery were consulted from the ED. At this time there is no surgical intervention planned. MRI thoracic spine showed some T11 lesion possible demyelinating process. At present still with numbness and weakness to RLE. D 1. Right leg paresthesia ,weakness with acute urinary retention Unknown etiology at present but most likely Transverse myelitis Neurology and neurosurgery consults appreciated No surgical interventions at present Continue Dexamethasone LP preformed and was clear. CT chest abdomen and pelvis showed no malignancy Continue Acyclovir IV paraneoplastic work up negative so far Discussed with neurology and Plasmaphresis treatment was recommended . Hem/onc Dr. Nieves consulted to facilitate with initiation of plasmaphresis. HD access placed by IR today Keep Lakhani in place for now Will give Dulcolax [place] since patient has had no BM ( abdomen is soft and BS present ) 2. DVT prophylaxis SCDs
--- NOTE | 2018-05-14 12:13 | CP.PCM.CON ---
History of Present Illness - History of Present Illness History of Present Illness: 52 year old male with no past medical history, admitted with findings concerning for transverse myelitis requiring plasmapheresis. I have been asked to help facilitate plasmapheresis. 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 He currently has urinary retention and constipation. Past medical history: None Past surgical history: Denies FAmily history: Denies Social history: Denies tobacco, alcohol, and illicit drug use Allergies: NKA Review of systems: All remaining review of systems including HEENT, cardiovascular, respiratory, gastrointestinal, genitourinary, musculoskeletal, dermatologic, neurologic, and psychiatric are negative unless mentioned in the HPI. Past Patient History - Infectious Disease Hx of Infectious Diseases: None - Past Medical History & Family History Past Medical History?: No - Past Social History Smoking Status: Light Smoker < 10 Cigarettes Daily - CARDIAC Hx Cardiac Disorders: No - PULMONARY Hx Respiratory Disorders: No - NEUROLOGICAL Hx Neurological Disorder: No - HEENT Hx HEENT Problems: No - RENAL Hx Chronic Kidney Disease: No - ENDOCRINE/METABOLIC Hx Endocrine Disorders: No - HEMATOLOGICAL/ONCOLOGICAL Hx Blood Disorders: No Hx AIDS: No Hx Human Immunodeficiency Virus (HIV): No - INTEGUMENTARY Hx Dermatological Problems: No - MUSCULOSKELETAL/RHEUMATOLOGICAL Hx Musculoskeletal Disorders: No Hx Falls: No - GASTROINTESTINAL Hx Gastrointestinal Disorders: No - GENITOURINARY/GYNECOLOGICAL Hx Genitourinary Disorders: No - PSYCHIATRIC Hx Psychophysiologic Disorder: No Hx Substance Use: No - SURGICAL HISTORY Hx Surgeries: Yes Other/Comment: left thumb partial amputation. left palm surgery/grafting( injured from accident) - ANESTHESIA Hx Anesthesia: Yes Hx Anesthesia Reactions: No Hx Malignant Hyperthermia: No Meds Allergies/Adverse Reactions: Allergies Allergy/AdvReac Type Severity Reaction Status Date / Time No Known Allergies Allergy Verified 05/10/18 13:08 - Medications Medications: Current Medications Acetaminophen (Tylenol 325mg Tab) 650 mg PO Q6 PRN PRN Reason: Pain, Mild (1-3) Last Admin: 05/13/18 22:00 Dose: 650 mg Acyclovir (Zovirax) 800 mg PO BID STEPHANIE PRN Reason: Protocol Last Admin: 05/14/18 09:33 Dose: 800 mg Dexamethasone (Decadron Inj) 10 mg IVP Q12H [facility] Last Admin: 05/14/18 09:33 Dose: 10 mg Ondansetron HCl (Zofran Inj) 4 mg IVP Q6 PRN PRN Reason: Nausea/Vomiting Pantoprazole Sodium (Protonix Ec Tab) 40 mg PO DAILY [facility]IE Last Admin: 05/14/18 09:32 Dose: 40 mg Physical Exam - Head Exam Head Exam: ATRAUMATIC - Eye Exam Eye Exam: Normal appearance - ENT Exam ENT Exam: Mucous Membranes Dry - Respiratory Exam Respiratory Exam: NORMAL BREATHING PATTERN - Cardiovascular Exam Cardiovascular Exam: +S1, +S2 - GI/Abdominal Exam GI & Abdominal Exam: Normal Bowel Sounds Results - Vital Signs Recent Vital Signs: Last Vital Signs Temp 97.5 F L 05/14/18 08:07 Pulse 65 05/14/18 08:07 Resp 18 05/14/18 08:07 BP 107/63 05/14/18 08:07 Pulse Ox 98 05/14/18 08:07 - Labs Result Diagrams: 05/13/18 05:55 05/13/18 05:55 Labs: Laboratory Results - last 24 hr 05/11/18 05/13/18 18:47 05:10 Anti-HU Antibody Titer TNP Anti-Hu Antibody Fluorescence noted H Anti-Hu Ab (West Blot) Negative Blood Type O POSITIVE Antibody Screen Negative BBK History Checked Patient has bt Assessment & Plan (1) Myelitis Assessment and Plan: neurology recommendation for plasmapheresis x 5 sessions every other day will plan for treatment tomorrow once access obtained 1 plasma volume replacement with albumin per session fibrinogen to be checked prior to each plasmapheresis; goal above 100 Thank you for this interesting consult. Status: Acute
[2018-05-14] MEDS ORDERED: Lidocaine 1% 5ml Abboject IV ONE (13:03)
--- NOTE | 2018-05-14 14:02 | PCM.SURG1 ---
Surgeon's Initial Post Op Note - Surgeon's Notes Surgeon: Tanya Cardiac Care Nurse: None Type of Anesthesia: Local Pre-Operative Diagnosis: IV access for plasmaphoresis Operative Findings: Patent right IJV Post-Operative Diagnosis: IV access for plasmaphoresis Operation Performed: 15cm shiley placed via the right IJV Specimen/Specimens Removed: None Estimated Blood Loss: EBL {In ML}: 1 Date of Surgery/Procedure: 05/14/18 Time of Surgery/Procedure: 13:45
[2018-05-14] MEDS ORDERED: Iohexol 300 100 ML IJ ONE (17:17)
[2018-05-14] MEDS ORDERED: Sodium Chloride 0.9% 50 ML IV ONE (17:17)
--- NOTE | 2018-05-14 18:05 | CT ---
Date of service: 05/14/2018 PROCEDURE: CT Chest with contrast HISTORY: rule out malignancy COMPARISON: NoneGo available. TECHNIQUE: Contiguous axial images were obtained through the chest with intravenous contrast enhancement. Sagittal and coronal reconstructions were performed. IV contrast: 95 cc Omnipaque 300 Radiation dose (DLP): mGy-cm. This CT exam was performed using one or more of the following dose reduction techniques: Automated exposure control, adjustment of the mA and/or kV according to patient size, and/or use of iterative reconstruction technique. FINDINGS: LUNGS: Hyperinflation, manifestations of COPD. No active pulmonary disease. Parabronchial thickening/ bronchitic changes identified. No suspicious pulmonary masses or nodules. No discrete infiltrates identified. MEDIASTINUM: Unremarkable thoracic aorta. No aneurysm or dissection. Normal sized heart. Main pulmonary artery unremarkable. No vascular congestion. No lymphadenopathy. PLEURA: No pleural fluid. No pneumothorax. BONES: No fracture. No destructive lesion. UPPER ABDOMEN: Grossly unremarkable. OTHER FINDINGS: Venous access catheter in satisfactory position. IMPRESSION: No significant or acute findings to account for/ related to the clinical presentation. Additional benign and/or incidental findings described above.
[2018-05-14 19:56] LABS: SPECIMEN SOURCE CSF
--- NOTE | 2018-05-15 07:56 | CP.PCM.PN ---
Subjective - Date & Time of Evaluation Date of Evaluation: 05/15/18 Time of Evaluation: 07:56 - Subjective Subjective: plasmapheresis today no complaints states he is mildly improving, moving R leg slightly hd stable nad Objective - Vital Signs/Intake and Output Vital Signs (last 24 hours): Temp Pulse Resp BP Pulse Ox 97.7 F 68 20 115/71 97 05/14/18 23:37 05/14/18 23:37 05/14/18 23:37 05/14/18 23:37 05/14/18 23:37 Intake and Output: GEN: awake alert HEENT: NCAT, PERRL, EOMI HEART: RRR +S1S2 LUNG: CTAB no WRR ABD: soft, NT, ND, no mass, BSx4 EXT: normal capillary refill, warm SKIN: warm, dry NEURO: awake, alert PSYCH: normal mood and affect - Medications Medications: Current Medications Acetaminophen (Tylenol 325mg Tab) 650 mg PO Q6 PRN PRN Reason: Pain, Mild (1-3) Last Admin: 05/13/18 22:00 Dose: 650 mg Acyclovir (Zovirax) 800 mg PO BID [facility] PRN Reason: Protocol Last Admin: 05/14/18 17:08 Dose: 800 mg Dexamethasone (Decadron Inj) 10 mg IVP Q12H [facility] Last Admin: 05/14/18 20:54 Dose: 10 mg Ondansetron HCl (Zofran Inj) 4 mg IVP Q6 PRN PRN Reason: Nausea/Vomiting Pantoprazole Sodium (Protonix Ec Tab) 40 mg PO DAILY [facility] Last Admin: 05/14/18 09:32 Dose: 40 mg - Labs Labs: 05/13/18 05:55 05/13/18 05:55 PT 10.4 Seconds (9.8-13.1) 05/10/18 14:10 INR 0.9 05/10/18 14:10 APTT 32.0 Seconds (25.6-37.1) 05/10/18 14:10 Assessment and Plan - Assessment and Plan (Free Text) Plan: 52 yo male with no significant past medical history presented with sudden complaint of two days of bilateral lower back pain 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 At that time he began having numbness/ parasthesia radiating down his right buttock and the entirety of his anterior and posterior right leg. He also began having left leg electric shooting pain pain. He denied any saddle anesthesia however unable to void .He also gave history of herniated disc and sciatica for the last 4 years on and off. In the ED, patient was noted to have urinary retention and Lakhani catheter was inserted draining 1600 cc of urine.MRI of the lumbar spine and CT thoracic spine were performed and Dexamethasone was given. There was disc hernation noted on lumbar MRI, however there was no cord compression identified. Both Neurology and neurosurgery were consulted from the ED. At this time there is no surgical intervention planned. MRI thoracic spine showed some T11 lesion possible demyelinating process. At present still with numbness and weakness to RLE. 1. Right leg paresthesia ,weakness with acute urinary retention Unknown etiology at present but most likely Transverse myelitis Neurology and neurosurgery consults appreciated No surgical interventions at present Continue Dexamethasone LP performed and was clear. CT chest abdomen and pelvis showed no malignancy Continue Acyclovir IV paraneoplastic work up negative so far Discussed with neurology and Plasmaphresis treatment was recommended for today. Hem/onc Dr. Nieves consulted to facilitate with initiation of plasmaphresis. HD access placed by IR Keep Lakhani in place for now Will give Dulcolax [place] since patient has had no BM ( abdomen is soft and BS present ) 2. DVT prophylaxis SCDs
--- NOTE | 2018-05-15 08:31 | CP.PCM.PN ---
<Joaquin Zepeda - Last Filed: 05/15/18 08:36> Subjective - Date & Time of Evaluation Date of Evaluation: 05/15/18 Time of Evaluation: 08:31 - Subjective Subjective: Mr. Ahmadi was seen and examined at the bedside. He remains alert, oriented still complaining of right lower extremity weakness, sensation is diminished in comparison to his left lower extremity with minimal movement noted of the right leg. He is made aware of the treatment of plasmapheresis for his disease condition and is agreeable. He has the temporary dialysis catheter in his right subclavian area. He is just concern of his inability to feel when he does bowel movement, explain to patient that with his current treatment, hoping his condition will be treated.There was no untoward events overnight. Objective - Vital Signs/Intake and Output Vital Signs (last 24 hours): Temp Pulse Resp BP Pulse Ox 97.7 F 103 H 20 116/73 97 05/15/18 07:59 05/15/18 07:59 05/15/18 07:59 05/15/18 07:59 05/15/18 07:59 - Medications Medications: Current Medications Acetaminophen (Tylenol 325mg Tab) 650 mg PO Q6 PRN PRN Reason: Pain, Mild (1-3) Last Admin: 05/13/18 22:00 Dose: 650 mg Acyclovir (Zovirax) 800 mg PO BID [facility] PRN Reason: Protocol Last Admin: 05/14/18 17:08 Dose: 800 mg Dexamethasone (Decadron Inj) 10 mg IVP Q12H [facility] Last Admin: 05/14/18 20:54 Dose: 10 mg Ondansetron HCl (Zofran Inj) 4 mg IVP Q6 PRN PRN Reason: Nausea/Vomiting Pantoprazole Sodium (Protonix Ec Tab) 40 mg PO DAILY [facility] Last Admin: 05/14/18 09:32 Dose: 40 mg - Labs Labs: 05/13/18 05:55 05/13/18 05:55 PT 10.4 Seconds (9.8-13.1) 05/10/18 14:10 INR 0.9 05/10/18 14:10 APTT 32.0 Seconds (25.6-37.1) 05/10/18 14:10 - Constitutional Appears: No Acute Distress - Head Exam Head Exam: NORMAL INSPECTION - Eye Exam Pupil Exam: PERRL - Neurological Exam Neurological Exam: Alert, Awake, Oriented x3 Neuro motor strength exam: Left Upper Extremity: 5, Right Upper Extremity: 5, Left Lower Extremity: 5, Right Lower Extremity: 2/1 Additional comments: neurological improving with minimal movement of the right lower extremity. Assessment and Plan (1) Myelitis Assessment & Plan: Continue all current medical and physical therapies. Pending plasmapheresis for treatment of transverse myelitis. Recommend monitor neuro check, hydration, treat any electrolyte abnormalities. Status: Acute <Jeremías Sheth - Last Filed: 05/19/18 12:47> Objective - Vital Signs/Intake and Output Vital Signs (last 24 hours): Temp Pulse Resp BP Pulse Ox 98 F 65 20 131/73 96 05/19/18 08:19 05/19/18 08:19 05/19/18 08:19 05/19/18 08:19 05/19/18 08:19 Intake and Output: 05/19/18 05/19/18 06:59 18:59 Output Total 1850 Balance -1850 - Medications Medications: Current Medications Acetaminophen (Tylenol 325mg Tab) 650 mg PO Q6 PRN PRN Reason: Pain, Mild (1-3) Last Admin: 05/13/18 22:00 Dose: 650 mg Dexamethasone (Decadron Inj) 10 mg IVP Q12H [facility] Last Admin: 05/19/18 07:58 Dose: 10 mg Ondansetron HCl (Zofran Inj) 4 mg IVP Q6 PRN PRN Reason: Nausea/Vomiting Pantoprazole Sodium (Protonix Ec Tab) 40 mg PO DAILY [facility] Last Admin: 05/19/18 07:59 Dose: 40 mg - Labs Labs: 05/19/18 05:40 05/18/18 05:30 PT 10.4 Seconds (9.8-13.1) 05/10/18 14:10 INR 0.9 05/10/18 14:10 APTT 32.0 Seconds (25.6-37.1) 05/10/18 14:10 Assessment and Plan - Assessment and Plan (Free Text) Plan: Attestation: I examined the patient myself and found the neurological exam to be unchanged. Agree with the assessment and the plan that i assisted in formulating. Thank you Dr. sheth
[2018-05-15] MEDS: Pantoprazole 40 mg EC Tab PO SCH (08:50)
[2018-05-15] MEDS ORDERED: Albumin Human 5% (12.5 gm/250 ml) IV ONE (12:42)
[2018-05-16 07:25] LABS: HEMOGLOBIN 15.5 g/dL (12.0-18.0); MEAN CELL VOLUME 91.5 fl (80.0-94.0); MEAN CORPUSCULAR HEMOGLOBIN 31.2 pg (27.0-31.0); MEAN CORPUSCULAR HGB CONC 34.1 g/dL (33.0-37.0); RBC 4.97 Mil/uL (4.40-5.90); RED CELL DISTRIBUTION WIDTH 13.6 % (11.5-14.5); WHITE BLOOD COUNT 12.2 K/uL (4.8-10.8)
[2018-05-16 08:10] LABS: BLOOD UREA NITROGEN 22 mg/dl (9-20); CALCIUM 8.7 mg/dL (8.4-10.2); GFR NON-AFRICAN AMERICAN > 60
--- NOTE | 2018-05-16 08:42 | CP.PCM.PN ---
Subjective - Date & Time of Evaluation Date of Evaluation: 05/16/18 Time of Evaluation: 09:00 - Subjective Subjective: Patient seen and examined bedside. Still with weakness to RLE but better , able to lift the leg of the bed , numbness has improved .Unable to control BM , has no sensation Lakhani in place with good urine output Hemodynamically stable, afebrile. No acute issues overnight. Received plasmaphresis yesterday. Objective - Vital Signs/Intake and Output Vital Signs (last 24 hours): Temp Pulse Resp BP Pulse Ox 97.8 F 70 18 99/59 L 96 05/16/18 08:08 05/16/18 08:08 05/16/18 08:08 05/16/18 08:08 05/16/18 08:08 Intake and Output: 05/16/18 05/16/18 06:59 18:59 Output Total 1300 Balance -1300 - Medications Medications: Current Medications Acetaminophen (Tylenol 325mg Tab) 650 mg PO Q6 PRN PRN Reason: Pain, Mild (1-3) Last Admin: 05/13/18 22:00 Dose: 650 mg Acyclovir (Zovirax) 800 mg PO BID [facility] PRN Reason: Protocol Last Admin: 05/15/18 08:50 Dose: 800 mg Dexamethasone (Decadron Inj) 10 mg IVP Q12H [facility] Last Admin: 05/15/18 20:35 Dose: 10 mg Ondansetron HCl (Zofran Inj) 4 mg IVP Q6 PRN PRN Reason: Nausea/Vomiting Pantoprazole Sodium (Protonix Ec Tab) 40 mg PO DAILY [facility] Last Admin: 05/15/18 08:50 Dose: 40 mg - Labs Labs: 05/16/18 05:30 05/16/18 05:30 PT 10.4 Seconds (9.8-13.1) 05/10/18 14:10 INR 0.9 05/10/18 14:10 APTT 32.0 Seconds (25.6-37.1) 05/10/18 14:10 - Constitutional Appears: Non-toxic, No Acute Distress - Head Exam Head Exam: ATRAUMATIC, NORMAL INSPECTION, NORMOCEPHALIC - Eye Exam Eye Exam: EOMI, Normal appearance, PERRL Pupil Exam: NORMAL ACCOMODATION - ENT Exam ENT Exam: Mucous Membranes Moist, Normal Exam - Neck Exam Neck Exam: Full ROM, Normal Inspection - Respiratory Exam Respiratory Exam: Clear to Ausculation Bilateral. absent: Rales, Rhonchi, Wheezes - Cardiovascular Exam Cardiovascular Exam: REGULAR RHYTHM, RRR, +S1, +S2. absent: JVD - GI/Abdominal Exam GI & Abdominal Exam: Soft. absent: Guarding, Tenderness, Rebound - Rectal Exam Rectal Exam: Deferred - Extremities Exam Extremities Exam: Normal Capillary Refill, Normal Inspection. 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 At that time he began having numbness/ parasthesia radiating down his right buttock and the entirety of his anterior and posterior right leg. He also began having left leg electric shooting pain pain. He denied any saddle anesthesia however unable to void .He also gave history of herniated disc and sciatica for the last 4 years on and off. In the ED, patient was noted to have urinary retention and Lakhani catheter was inserted draining 1600 cc of urine.MRI of the lumbar spine and CT thoracic spine were performed and Dexamethasone was given. There was disc hernation noted on lumbar MRI, however there was no cord compression identified. Both Neurology and neurosurgery were consulted from the ED. At this time there is no surgical intervention planned. MRI thoracic spine showed some T11 lesion possible demyelinating process. At present still some numbness and weakness to RLE, but better . Unable to control bowel movements and urine. Received plasmaphresis yesterday for possible transverse myelitis. 1. Right leg paresthesia ,weakness with acute urinary retention Unknown etiology at present but most likely Transverse myelitis Neurology and neurosurgery consults appreciated No surgical interventions at present Started pladsmaphresis yesterday 05/15 LP performed was clear . HSV , HIV negative Discontinue acyclovir Continue Dexamethasone CT chest abdomen and pelvis showed no malignancy paraneoplastic work up negative so far Keep Lakhani in place for now 2. DVT prophylaxis SCDs
[2018-05-16] MEDS: Pantoprazole 40 mg EC Tab PO SCH (09:25)
[2018-05-16] MEDS ORDERED: Albumin Human 5% (12.5 gm/250 ml) IV ONE (10:00)
--- NOTE | 2018-05-17 07:09 | CP.PCM.PN ---
Subjective - Date & Time of Evaluation Date of Evaluation: 05/17/18 Time of Evaluation: 07:09 - Subjective Subjective: Mr. Ahmadi was seen and examined at the bedside. He remains alert, oriented verbalizes of improving right lower extremity weakness and sensation. However remains sensation is diminished in comparison to his left lower extremity . He was able to tolerate first treatment of plasmapheresis.There was no untoward events overnight. Objective - Vital Signs/Intake and Output Vital Signs (last 24 hours): Temp Pulse Resp BP Pulse Ox 98.3 F 74 20 135/79 96 05/17/18 01:09 05/17/18 01:09 05/17/18 01:09 05/17/18 01:09 05/17/18 01:09 Intake and Output: 05/17/18 05/17/18 06:59 18:59 Intake Total 1350 Output Total 2750 Balance -1400 - Medications Medications: Current Medications Acetaminophen (Tylenol 325mg Tab) 650 mg PO Q6 PRN PRN Reason: Pain, Mild (1-3) Last Admin: 05/13/18 22:00 Dose: 650 mg Dexamethasone (Decadron Inj) 10 mg IVP Q12H [facility] Last Admin: 05/16/18 21:20 Dose: 10 mg Ondansetron HCl (Zofran Inj) 4 mg IVP Q6 PRN PRN Reason: Nausea/Vomiting Pantoprazole Sodium (Protonix Ec Tab) 40 mg PO DAILY [facility] Last Admin: 05/16/18 09:25 Dose: 40 mg - Labs Labs: 05/16/18 05:30 05/16/18 05:30 PT 10.4 Seconds (9.8-13.1) 05/10/18 14:10 INR 0.9 05/10/18 14:10 APTT 32.0 Seconds (25.6-37.1) 05/10/18 14:10 - Constitutional Appears: No Acute Distress - Head Exam Head Exam: NORMAL INSPECTION - Eye Exam Pupil Exam: PERRL - Neurological Exam Neurological Exam: Alert, Awake, Oriented x3 Neuro motor strength exam: Left Upper Extremity: 5, Right Upper Extremity: 5, Left Lower Extremity: 5, Right Lower Extremity: 3 Additional comments: neurological unchanged from previous examination. Assessment and Plan (1) Myelitis Assessment & Plan: Continue all current medical and physical therapies.Recommend monitor neuro check, hydration, treat any electrolyte abnormalities. Status: Acute
--- NOTE | 2018-05-17 07:37 | CP.PCM.PN ---
Subjective - Date & Time of Evaluation Date of Evaluation: 05/17/18 Time of Evaluation: 09:40 - Subjective Subjective: Patient seen and examined . Feeling more improved in terms of power, strength and numbness to RLE. Able to push down with RLWE and lift it off the bed No acute issues overnight Hemodynamically stable, afebrile Had BM but not having sensation Lakhani in place with good urine output Objective - Vital Signs/Intake and Output Vital Signs (last 24 hours): Temp Pulse Resp BP Pulse Ox 98.3 F 74 20 135/79 96 05/17/18 01:09 05/17/18 01:09 05/17/18 01:09 05/17/18 01:09 05/17/18 01:09 Intake and Output: 05/17/18 05/17/18 06:59 18:59 Intake Total 1350 Output Total 2750 Balance -1400 - Medications Medications: Current Medications Acetaminophen (Tylenol 325mg Tab) 650 mg PO Q6 PRN PRN Reason: Pain, Mild (1-3) Last Admin: 05/13/18 22:00 Dose: 650 mg Dexamethasone (Decadron Inj) 10 mg IVP Q12H [facility] Last Admin: 05/16/18 21:20 Dose: 10 mg Ondansetron HCl (Zofran Inj) 4 mg IVP Q6 PRN PRN Reason: Nausea/Vomiting Pantoprazole Sodium (Protonix Ec Tab) 40 mg PO DAILY [facility] Last Admin: 05/16/18 09:25 Dose: 40 mg - Labs Labs: 05/16/18 05:30 05/16/18 05:30 PT 10.4 Seconds (9.8-13.1) 05/10/18 14:10 INR 0.9 05/10/18 14:10 APTT 32.0 Seconds (25.6-37.1) 05/10/18 14:10 - Constitutional Appears: Non-toxic, No Acute Distress - Head Exam Head Exam: ATRAUMATIC, NORMAL INSPECTION, NORMOCEPHALIC - Eye Exam Eye Exam: EOMI, Normal appearance, PERRL Pupil Exam: NORMAL ACCOMODATION - ENT Exam ENT Exam: Mucous Membranes Moist, Normal Exam - Neck Exam Neck Exam: Full ROM, Normal Inspection - Respiratory Exam Respiratory Exam: Clear to Ausculation Bilateral, NORMAL BREATHING PATTERN. absent: Rales, Rhonchi, Wheezes - Cardiovascular Exam Cardiovascular Exam: REGULAR RHYTHM, RRR, +S1, +S2. absent: JVD - GI/Abdominal Exam GI & Abdominal Exam: Soft, Normal Bowel Sounds. absent: Distended, Guarding, Tenderness, Rebound - Rectal Exam Rectal Exam: Deferred - Extremities Exam Extremities Exam: Full ROM, Normal Capillary Refill, Normal Inspection. absent : Pedal Edema - Back Exam Back Exam: NORMAL INSPECTION. 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 At that time he began having numbness/ parasthesia radiating down his right buttock and the entirety of his anterior and posterior right leg. He also began having left leg electric shooting pain pain. He denied any saddle anesthesia however unable to void .He also gave history of herniated disc and sciatica for the last 4 years on and off. In the ED, patient was noted to have urinary retention and Lakhani catheter was inserted draining 1600 cc of urine.MRI of the lumbar spine and CT thoracic spine were performed and Dexamethasone was given. There was disc hernation noted on lumbar MRI, however there was no cord compression identified. Both Neurology and neurosurgery were consulted from the ED. At this time there is no surgical intervention planned. MRI thoracic spine showed some T11 lesion possible demyelinating process. At present still some numbness and weakness to RLE, but better . Unable to control bowel movements and urine. Received plasmaphresis 05/15 for possible transverse myelitis and neurologically improving. 1. Right leg paresthesia ,weakness with acute urinary retention Unknown etiology at present but most likely Transverse myelitis LP performed was clear . HSV , HIV negative MRI spine showed no cord compression Neurology and neurosurgery consults appreciated No surgical interventions at present Received pladsmaphresis 05/15 and presently showing neurological improvement in the power , sensation to RLE .With saddle anesthesia a Discontinued acyclovir, HSV negative Continue Dexamethasone CT chest abdomen and pelvis showed no malignancy paraneoplastic work up negative so far Keep Lakhani in place for now Start PT 2. DVT prophylaxis SCDs
[2018-05-17] MEDS: Pantoprazole 40 mg EC Tab PO SCH (08:45)
[2018-05-17 20:50] LABS: CSF ALPHA-1-GLOBULIN 4.5 % (1.8-6.5); CSF BETA GLOBULIN 16.6 % (7.8-18.2); CSF PRE-ALBUMIN 3.2 % (1.3-6.9)
[2018-05-18 06:41] LABS: HEMOGLOBIN 14.6 g/dL (12.0-18.0); MEAN CELL VOLUME 91.5 fl (80.0-94.0); MEAN CORPUSCULAR HEMOGLOBIN 31.3 pg (27.0-31.0); MEAN CORPUSCULAR HGB CONC 34.2 g/dL (33.0-37.0); RBC 4.66 Mil/uL (4.40-5.90); RED CELL DISTRIBUTION WIDTH 13.4 % (11.5-14.5); WHITE BLOOD COUNT 10.9 K/uL (4.8-10.8)
[2018-05-18 06:48] LABS: ALB/GLOB RATIO 2.4 (1.0-2.1); ALT/SGPT 42 U/L (21-72); AST/SGOT 27 U/L (17-59); BLOOD UREA NITROGEN 22 mg/dl (9-20); GFR NON-AFRICAN AMERICAN > 60
--- NOTE | 2018-05-18 08:23 | CP.PCM.PN ---
Subjective - Date & Time of Evaluation Date of Evaluation: 05/18/18 Time of Evaluation: 08:23 - Subjective Subjective: Mr. Ahmadi was seen and examined at the bedside. He remains alert, oriented verbalizes of improving right lower extremity weakness and sensation. However remains sensation is diminished in comparison to his left lower extremity . He was able to tolerate first treatment of plasmapheresis with three more treatments this week.There was no untoward events overnight. Objective - Vital Signs/Intake and Output Vital Signs (last 24 hours): Temp Pulse Resp BP Pulse Ox 97.9 F 78 19 133/77 96 05/18/18 00:05 05/18/18 00:05 05/18/18 00:05 05/18/18 00:05 05/18/18 00:05 Intake and Output: 05/18/18 05/18/18 06:59 18:59 Output Total 1900 Balance -1900 - Medications Medications: Current Medications Acetaminophen (Tylenol 325mg Tab) 650 mg PO Q6 PRN PRN Reason: Pain, Mild (1-3) Last Admin: 05/13/18 22:00 Dose: 650 mg Dexamethasone (Decadron Inj) 10 mg IVP Q12H [facility] Last Admin: 05/17/18 22:17 Dose: 10 mg Ondansetron HCl (Zofran Inj) 4 mg IVP Q6 PRN PRN Reason: Nausea/Vomiting Pantoprazole Sodium (Protonix Ec Tab) 40 mg PO DAILY [facility] Last Admin: 05/17/18 08:45 Dose: 40 mg - Labs Labs: 05/18/18 05:30 05/18/18 05:30 PT 10.4 Seconds (9.8-13.1) 05/10/18 14:10 INR 0.9 05/10/18 14:10 APTT 32.0 Seconds (25.6-37.1) 05/10/18 14:10 - Constitutional Appears: No Acute Distress - Head Exam Head Exam: NORMAL INSPECTION - Eye Exam Pupil Exam: PERRL - Neurological Exam Neurological Exam: Alert, Awake Neuro motor strength exam: Left Upper Extremity: 5, Right Upper Extremity: 5, Left Lower Extremity: 5, Right Lower Extremity: 3 Additional comments: neurological unchanged from previous examination. Assessment and Plan (1) Myelitis Assessment & Plan: Continue all current medical and physical therapies.Recommend to follow any orders from hematology, monitor neuro check, hydration, treat any electrolyte abnormalities. Status: Acute
[2018-05-18] MEDS: Pantoprazole 40 mg EC Tab PO SCH (08:31)
--- NOTE | 2018-05-18 08:56 | CP.PCM.PN ---
Subjective - Date & Time of Evaluation Date of Evaluation: 05/18/18 Time of Evaluation: 09:30 - Subjective Subjective: Patient seen and examined . Hemodynamically stable, afebrile Power and sensation to RLE has improved but still weak and with numbness With saddle anesthesia Lakhani in place with good urine output Objective - Vital Signs/Intake and Output Vital Signs (last 24 hours): Temp Pulse Resp BP Pulse Ox 97.8 F 74 20 127/79 93 L 05/18/18 08:42 05/18/18 08:42 05/18/18 08:42 05/18/18 08:42 05/18/18 08:42 Intake and Output: 05/18/18 05/18/18 06:59 18:59 Output Total 1900 Balance -1900 - Medications Medications: Current Medications Acetaminophen (Tylenol 325mg Tab) 650 mg PO Q6 PRN PRN Reason: Pain, Mild (1-3) Last Admin: 05/13/18 22:00 Dose: 650 mg Dexamethasone (Decadron Inj) 10 mg IVP Q12H [facility] Last Admin: 05/18/18 08:31 Dose: 10 mg Ondansetron HCl (Zofran Inj) 4 mg IVP Q6 PRN PRN Reason: Nausea/Vomiting Pantoprazole Sodium (Protonix Ec Tab) 40 mg PO DAILY [facility] Last Admin: 05/18/18 08:31 Dose: 40 mg - Labs Labs: 05/18/18 05:30 05/18/18 05:30 PT 10.4 Seconds (9.8-13.1) 05/10/18 14:10 INR 0.9 05/10/18 14:10 APTT 32.0 Seconds (25.6-37.1) 05/10/18 14:10 - Constitutional Appears: Non-toxic, No Acute Distress - Head Exam Head Exam: ATRAUMATIC, NORMAL INSPECTION, NORMOCEPHALIC - Eye Exam Eye Exam: EOMI, Normal appearance, PERRL Pupil Exam: NORMAL ACCOMODATION - ENT Exam ENT Exam: Mucous Membranes Moist, Normal Exam - Neck Exam Neck Exam: Full ROM, Normal Inspection - Respiratory Exam Respiratory Exam: Clear to Ausculation Bilateral, NORMAL BREATHING PATTERN. absent: Rales, Rhonchi, Wheezes - Cardiovascular Exam Cardiovascular Exam: REGULAR RHYTHM, RRR, +S1, +S2. absent: JVD - GI/Abdominal Exam GI & Abdominal Exam: Soft, Normal Bowel Sounds. absent: Distended, Guarding, Tenderness, Rebound - Rectal Exam Rectal Exam: Deferred - Extremities Exam Extremities Exam: Normal Capillary Refill, Normal Inspection. 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 At that time he began having numbness/ parasthesia radiating down his right buttock and the entirety of his anterior and posterior right leg. He also began having left leg electric shooting pain pain. He denied any saddle anesthesia however unable to void .He also gave history of herniated disc and sciatica for the last 4 years on and off. In the ED, patient was noted to have urinary retention and Lakhani catheter was inserted draining 1600 cc of urine.MRI of the lumbar spine and CT thoracic spine were performed and Dexamethasone was given. There was disc hernation noted on lumbar MRI, however there was no cord compression identified. Both Neurology and neurosurgery were consulted from the ED. At this time there is no surgical intervention planned. MRI thoracic spine showed some T11 lesion possible demyelinating process. At present still some numbness and weakness to RLE, but better . Unable to control bowel movements and urine. Received plasmaphresis 05/15 for possible transverse myelitis and neurologically improving. 1. Right leg paresthesia ,weakness with acute urinary retention Unknown etiology at present but most likely Transverse myelitis LP performed was clear . HSV , HIV negative MRI spine showed no cord compression , T11 lesion Neurology and neurosurgery consults appreciated No surgical interventions at present Received pladsmaphresis 05/15 and presently showing neurological improvement in the power , sensation to RLE .With saddle anesthesia . Will need 3 more sessions of plasmaphresis as per neurology Discontinued acyclovir, HSV negative Continue Dexamethasone CT chest abdomen and pelvis showed no malignancy paraneoplastic work up negative so far Keep Lakhani in place for now Start PT 2. DVT prophylaxis SCDs
[2018-05-18] MEDS ORDERED: Albumin Human 5% (12.5 gm/250 ml) IV ONE ×2 (13:25→17:15)
[2018-05-18] MEDS ORDERED: ALBUMIN HUMAN IV ONE (13:45)
[2018-05-18] MEDS ORDERED: CALCIUM CHLORIDE IVPB ONE (14:15)
[2018-05-18] MEDS ORDERED: SODIUM CHLORIDE 0.9% IVPB ONE (14:15)
[2018-05-18] MEDS ORDERED: Albumin Human 5% (12.5 gm/250 ml) IV SCH (17:15)
[2018-05-18] MEDS ORDERED: ALBUMIN HUMAN IV SCH (17:15)
--- NOTE | 2018-05-18 22:56 | CP.PCM.PN ---
Subjective - Date & Time of Evaluation Date of Evaluation: 05/18/18 Time of Evaluation: 19:00 - Subjective Subjective: Tolerated plasmapheresis today Objective - Vital Signs/Intake and Output Vital Signs (last 24 hours): Temp Pulse Resp BP Pulse Ox 97.7 F 76 18 121/66 96 05/18/18 16:11 05/18/18 16:11 05/18/18 16:11 05/18/18 16:11 05/18/18 16:11 Intake and Output: 05/18/18 05/19/18 18:59 06:59 Output Total 1300 Balance -1300 - Medications Medications: Current Medications Acetaminophen (Tylenol 325mg Tab) 650 mg PO Q6 PRN PRN Reason: Pain, Mild (1-3) Last Admin: 05/13/18 22:00 Dose: 650 mg Dexamethasone (Decadron Inj) 10 mg IVP Q12H [facility] Last Admin: 05/18/18 20:58 Dose: 10 mg Ondansetron HCl (Zofran Inj) 4 mg IVP Q6 PRN PRN Reason: Nausea/Vomiting Pantoprazole Sodium (Protonix Ec Tab) 40 mg PO DAILY [facility] Last Admin: 05/18/18 08:31 Dose: 40 mg - Labs Labs: 05/18/18 05:30 05/18/18 05:30 PT 10.4 Seconds (9.8-13.1) 05/10/18 14:10 INR 0.9 05/10/18 14:10 APTT 32.0 Seconds (25.6-37.1) 05/10/18 14:10 - Head Exam Head Exam: ATRAUMATIC - Eye Exam Eye Exam: Normal appearance - ENT Exam ENT Exam: Mucous Membranes Dry - Respiratory Exam Respiratory Exam: NORMAL BREATHING PATTERN - Cardiovascular Exam Cardiovascular Exam: +S1, +S2 - GI/Abdominal Exam GI & Abdominal Exam: Normal Bowel Sounds Assessment and Plan (1) Myelitis Assessment & Plan: plasmapheresis x 5 sessions; 1 plasma volume replacement with albumin hold plasmapheresis if fibrinogen < 100 neurology f/u Status: Acute
[2018-05-19 06:37] LABS: HEMOGLOBIN 14.3 g/dL (12.0-18.0); MEAN CORPUSCULAR HEMOGLOBIN 31.1 pg (27.0-31.0); MEAN CORPUSCULAR HGB CONC 34.2 g/dL (33.0-37.0); RBC 4.6 Mil/uL (4.40-5.90); RED CELL DISTRIBUTION WIDTH 13.5 % (11.5-14.5); WHITE BLOOD COUNT 11.1 K/uL (4.8-10.8)
[2018-05-19] MEDS: Pantoprazole 40 mg EC Tab PO SCH (07:59)
--- NOTE | 2018-05-19 16:19 | CP.PCM.PN ---
Subjective - Date & Time of Evaluation Date of Evaluation: 05/19/18 Time of Evaluation: 10:00 - Subjective Subjective: Patient seen and examined bedside. Feeling better. Weakness and numbness to RLE has improved Received 3rd session of plasmaphresis yesterday Hemodynamically stable ,afebrile No acute issues overnight Denies saddle anesthesia but states that has no rectal sphincter control Foleyy in place Objective - Vital Signs/Intake and Output Vital Signs (last 24 hours): Temp Pulse Resp BP Pulse Ox 97.6 F 82 20 121/75 95 05/19/18 16:06 05/19/18 16:06 05/19/18 16:06 05/19/18 16:06 05/19/18 16:06 Intake and Output: 05/19/18 05/19/18 06:59 18:59 Output Total 1850 Balance -1850 - Medications Medications: Current Medications Acetaminophen (Tylenol 325mg Tab) 650 mg PO Q6 PRN PRN Reason: Pain, Mild (1-3) Last Admin: 05/13/18 22:00 Dose: 650 mg Dexamethasone (Decadron Inj) 10 mg IVP Q12H [facility] Last Admin: 05/19/18 07:58 Dose: 10 mg Ondansetron HCl (Zofran Inj) 4 mg IVP Q6 PRN PRN Reason: Nausea/Vomiting Pantoprazole Sodium (Protonix Ec Tab) 40 mg PO DAILY [facility] Last Admin: 05/19/18 07:59 Dose: 40 mg - Labs Labs: 05/19/18 05:40 05/18/18 05:30 PT 10.4 Seconds (9.8-13.1) 05/10/18 14:10 INR 0.9 05/10/18 14:10 APTT 32.0 Seconds (25.6-37.1) 05/10/18 14:10 - Constitutional Appears: Non-toxic, No Acute Distress - Head Exam Head Exam: ATRAUMATIC, NORMAL INSPECTION, NORMOCEPHALIC - Eye Exam Eye Exam: EOMI, Normal appearance, PERRL Pupil Exam: NORMAL ACCOMODATION - ENT Exam ENT Exam: Mucous Membranes Moist, Normal Exam - Respiratory Exam Respiratory Exam: Clear to Ausculation Bilateral, NORMAL BREATHING PATTERN. absent: Rales, Rhonchi, Wheezes - Cardiovascular Exam Cardiovascular Exam: REGULAR RHYTHM, RRR, +S1, +S2. absent: JVD - GI/Abdominal Exam GI & Abdominal Exam: Soft, Normal Bowel Sounds. absent: Distended, Guarding, Tenderness, Rebound - Rectal Exam Rectal Exam: Deferred - Back Exam Back Exam: NORMAL INSPECTION - Neurological Exam Neurological Exam: Alert, Awake, CN II-XII Intact, Oriented x3 Neuro motor strength exam: Left Upper Extremity: 5, Right Upper Extremity: 5, Left Lower Extremity: 5, Right Lower Extremity: 4 - Psychiatric Exam Psychiatric exam: Normal Affect, Normal Mood - Skin Skin Exam: Dry, Intact, Normal Color, Warm Assessment and Plan - Assessment and Plan (Free Text) Assessment: 52 yo male with no significant past medical history presented with sudden complaint of two days of bilateral lower back pain 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 At that time he began having numbness/ parasthesia radiating down his right buttock and the entirety of his anterior and posterior right leg. He also began having left leg electric shooting pain pain. He denied any saddle anesthesia however unable to void .He also gave history of herniated disc and sciatica for the last 4 years on and off. In the ED, patient was noted to have urinary retention and Lakhani catheter was inserted draining 1600 cc of urine.MRI of the lumbar spine and CT thoracic spine were performed and Dexamethasone was given. There was disc hernation noted on lumbar MRI, however there was no cord compression identified. Both Neurology and neurosurgery were consulted from the ED. At this time there is no surgical intervention planned. MRI thoracic spine showed some T11 lesion possible demyelinating process. At present still some numbness and weakness to RLE, but better . Unable to control bowel movements and urine. Received 3 sessions of plasmaphresis for possible transverse myelitis and neurologically improving. 1. Right leg paresthesia ,weakness with acute urinary retention Unknown etiology at present but most likely Transverse myelitis LP performed was clear . HSV , HIV negative MRI spine showed no cord compression , T11 lesion Neurology and neurosurgery consults appreciated No surgical interventions at present Received 3 sessions of plasmaphresis and presently showing neurological improvement in the power , sensation to RLE.With fecal incontinence Will need 2 more sessions of plasmaphresis as per neurology. Hold plasmaphresis if fibrinogen is less [id number] as per hematology . Fibrinogen levels 51 today Discontinued acyclovir, HSV negative Continue Dexamethasone CT chest abdomen and pelvis showed no malignancy paraneoplastic work up negative so far Keep Lakhani in place for now Start PT 2. DVT prophylaxis SCDs
[2018-05-20] MEDS: Pantoprazole 40 mg EC Tab PO SCH (08:38)
--- NOTE | 2018-05-20 09:17 | CP.PCM.PN ---
Subjective - Date & Time of Evaluation Date of Evaluation: 05/20/18 Time of Evaluation: 09:17 - Subjective Subjective: Mr. Ahmadi was seen and examined at the bedside. He remains alert, awake, up in a chair and able to feed himself. He further claims of the right leg weakness and plasmaphesis was not done due to low level of fibrinogen. His right leg remains with + sensation and minimal movement. There was no untoward events overnight. Objective - Vital Signs/Intake and Output Vital Signs (last 24 hours): Temp Pulse Resp BP Pulse Ox 97.8 F 112 H 18 123/72 100 05/20/18 08:36 05/20/18 08:36 05/20/18 08:36 05/20/18 08:36 05/20/18 08:36 Intake and Output: 05/20/18 05/20/18 06:59 18:59 Output Total 1800 Balance -1800 - Medications Medications: Current Medications Acetaminophen (Tylenol 325mg Tab) 650 mg PO Q6 PRN PRN Reason: Pain, Mild (1-3) Last Admin: 05/19/18 21:20 Dose: 650 mg Dexamethasone (Decadron Inj) 10 mg IVP Q12H [facility] Last Admin: 05/20/18 08:38 Dose: 10 mg Ondansetron HCl (Zofran Inj) 4 mg IVP Q6 PRN PRN Reason: Nausea/Vomiting Pantoprazole Sodium (Protonix Ec Tab) 40 mg PO DAILY [facility] Last Admin: 05/20/18 08:38 Dose: 40 mg - Labs Labs: 05/19/18 05:40 05/18/18 05:30 PT 10.4 Seconds (9.8-13.1) 05/10/18 14:10 INR 0.9 05/10/18 14:10 APTT 32.0 Seconds (25.6-37.1) 05/10/18 14:10 - Constitutional Appears: Well, No Acute Distress - Head Exam Head Exam: ATRAUMATIC, NORMAL INSPECTION, NORMOCEPHALIC - Eye Exam Pupil Exam: PERRL - Neurological Exam Neurological Exam: Alert, Awake, Oriented x3 Neuro motor strength exam: Left Upper Extremity: 5, Right Upper Extremity: 5, Left Lower Extremity: 5, Right Lower Extremity: 2/1 Additional comments: neurological unchanged from previous examination. Assessment and Plan (1) Myelitis Assessment & Plan: Continue all current medical and physical therapies.Recommend any orders from hematology, monitor neuro check, hydration, treat any electrolyte abnormalities. Status: Acute
--- NOTE | 2018-05-20 16:40 | CP.PCM.PN ---
Subjective - Date & Time of Evaluation Date of Evaluation: 05/20/18 Time of Evaluation: 15:00 - Subjective Subjective: Patient was seen and examined at bedside. Unable to continue plasmapheresis today due to decreased fibrinogen level. He has received 3 sessions so far. HD stable, afebrile, no acute issues overnight. Lakhani in place. No rectal sphincter control but denies any saddle anesthesia. Objective - Vital Signs/Intake and Output Vital Signs (last 24 hours): Temp Pulse Resp BP Pulse Ox 98.4 F 74 18 117/71 96 05/20/18 16:06 05/20/18 16:06 05/20/18 16:06 05/20/18 16:06 05/20/18 16:06 Intake and Output: 05/20/18 05/20/18 06:59 18:59 Output Total 1800 Balance -1800 - Medications Medications: Current Medications Acetaminophen (Tylenol 325mg Tab) 650 mg PO Q6 PRN PRN Reason: Pain, Mild (1-3) Last Admin: 05/19/18 21:20 Dose: 650 mg Dexamethasone (Decadron Inj) 10 mg IVP Q12 [facility] Ondansetron HCl (Zofran Inj) 4 mg IVP Q6 PRN PRN Reason: Nausea/Vomiting Pantoprazole Sodium (Protonix Ec Tab) 40 mg PO DAILY [facility] Last Admin: 05/20/18 08:38 Dose: 40 mg - Labs Labs: 05/19/18 05:40 05/18/18 05:30 PT 10.4 Seconds (9.8-13.1) 05/10/18 14:10 INR 0.9 05/10/18 14:10 APTT 32.0 Seconds (25.6-37.1) 05/10/18 14:10 - Additional Findings Additional findings: Physical exam: Constitutional- cooperative, awake, alert Head- NCAT, PERRL Eye- PERRL, EOMI ENT- normal exam, MMM. Neck- normal inspection, supple, no JVD Respiratory- CTAB, no wheezes rales rhonchi Cardiovascular- RRR, +S1, +S2 no MRG GI/Abdominal- normal bowel sounds, soft, no mass, no hsm Skin- warm, dry Extremities Exam- RLE 4/5 muscle strength, 5/5 muscle strength other 3 extremities. 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 At that time he began having numbness/ parasthesia radiating down his right buttock and the entirety of his anterior and posterior right leg. He also began having left leg electric shooting pain pain. He denied any saddle anesthesia however unable to void .He also gave history of herniated disc and sciatica for the last 4 years on and off. In the ED, patient was noted to have urinary retention and Lakhani catheter was inserted draining 1600 cc of urine.MRI of the lumbar spine and CT thoracic spine were performed and Dexamethasone was given. There was disc hernation noted on lumbar MRI, however there was no cord compression identified. Both Neurology and neurosurgery were consulted from the ED. At this time there is no surgical intervention planned. MRI thoracic spine showed some T11 lesion possible demyelinating process. At present still some numbness and weakness to RLE, but better . Unable to control bowel movements and urine. Received 3 sessions of plasmaphresis for possible transverse myelitis and neurologically improving. Plasmapheresis now on hold due to low fibrinogen levels. 1. Right leg paresthesia ,weakness with acute urinary retention Unknown etiology at present but most likely Transverse myelitis LP performed was clear . HSV , HIV negative MRI spine showed no cord compression , T11 lesion Neurology and neurosurgery consults appreciated No surgical interventions at present Received 3 sessions of plasmaphresis and presently showing neurological improvement in the power , sensation to RLE.With fecal incontinence Will need 2 more sessions of plasmaphresis as per neurology. Hold plasmaphresis if fibrinogen is less [id number] as per hematology . Fibrinogen levels 51 yesterday and in 70's today. Will repeat again in AM. Discontinued acyclovir, HSV negative Continue Dexamethasone CT chest abdomen and pelvis showed no malignancy paraneoplastic work up negative so far Keep Lakhani in place for now Start PT 2. DVT prophylaxis SCDs
[2018-05-20] MEDS ORDERED: Dexamethasone 10 MG in Sodium Chloride 0.9% 50 ML IVPB SCH (21:00)
[2018-05-21 06:20] LABS: HEMOGLOBIN 14.6 g/dL (12.0-18.0); MEAN CELL VOLUME 90.8 fl (80.0-94.0); MEAN CORPUSCULAR HEMOGLOBIN 31.2 pg (27.0-31.0); MEAN CORPUSCULAR HGB CONC 34.3 g/dL (33.0-37.0); RBC 4.69 Mil/uL (4.40-5.90); RED CELL DISTRIBUTION WIDTH 13.7 % (11.5-14.5); WHITE BLOOD COUNT 11.9 K/uL (4.8-10.8)
[2018-05-21 07:05] LABS: BLOOD UREA NITROGEN 21 mg/dl (9-20); CALCIUM 9.2 mg/dL (8.4-10.2); GFR NON-AFRICAN AMERICAN > 60
[2018-05-21] MEDS: Pantoprazole 40 mg EC Tab PO SCH (08:46)
--- NOTE | 2018-05-21 17:14 | CP.PCM.PN ---
Subjective - Date & Time of Evaluation Date of Evaluation: 05/21/18 Time of Evaluation: 12:00 - Subjective Subjective: Patient seen and examined at bedside. Able to slowly ambulate with PT. Lakhani in place. Complaining of right dorsal foot pain upon WB and upon palpation of the metatarsals Objective - Vital Signs/Intake and Output Vital Signs (last 24 hours): Temp Pulse Resp BP Pulse Ox 97.5 F L 74 18 132/71 97 05/21/18 15:55 05/21/18 15:55 05/21/18 15:55 05/21/18 15:55 05/21/18 15:55 Intake and Output: 05/21/18 05/21/18 06:59 18:59 Output Total 2350 Balance -2350 - Medications Medications: Current Medications Acetaminophen (Tylenol 325mg Tab) 650 mg PO Q6 PRN PRN Reason: Pain, Mild (1-3) Last Admin: 05/20/18 22:01 Dose: 650 mg Dexamethasone (Decadron Inj) 10 mg IVP Q12 [facility] Last Admin: 05/21/18 08:46 Dose: 10 mg Ondansetron HCl (Zofran Inj) 4 mg IVP Q6 PRN PRN Reason: Nausea/Vomiting Pantoprazole Sodium (Protonix Ec Tab) 40 mg PO DAILY [facility] Last Admin: 05/21/18 08:46 Dose: 40 mg - Labs Labs: 05/21/18 05:30 05/21/18 05:30 PT 10.4 Seconds (9.8-13.1) 05/10/18 14:10 INR 0.9 05/10/18 14:10 APTT 32.0 Seconds (25.6-37.1) 05/10/18 14:10 - Additional Findings Additional findings: Physical exam: Constitutional- cooperative, awake, alert Head- NCAT, PERRL Eye- PERRL, EOMI ENT- normal exam, MMM. Neck- normal inspection, supple, no JVD Respiratory- CTAB, no wheezes rales rhonchi Cardiovascular- RRR, +S1, +S2 no MRG GI/Abdominal- normal bowel sounds, soft, no mass, no hsm Skin- warm, dry Extremities Exam- RLE 4/5 muscle strength, 5/5 muscle strength other 3 extremities. + Tenderness to palpation of the right dorsal foot. No edema or erythema of the right foot. 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 At that time he began having numbness/ parasthesia radiating down his right buttock and the entirety of his anterior and posterior right leg. He also began having left leg electric shooting pain pain. He denied any saddle anesthesia however unable to void .He also gave history of herniated disc and sciatica for the last 4 years on and off. In the ED, patient was noted to have urinary retention and Lakhani catheter was inserted draining 1600 cc of urine.MRI of the lumbar spine and CT thoracic spine were performed and Dexamethasone was given. There was disc hernation noted on lumbar MRI, however there was no cord compression identified. Both Neurology and neurosurgery were consulted from the ED. At this time there is no surgical intervention planned. MRI thoracic spine showed some T11 lesion possible demyelinating process. At present still some numbness and weakness to RLE, but better . Unable to control bowel movements and urine. Received 3 sessions of plasmaphresis for possible transverse myelitis and neurologically improving. Plasmapheresis now on hold due to low fibrinogen levels. 1. Right leg paresthesia ,weakness with acute urinary retention Unknown etiology at present but most likely Transverse myelitis LP performed was clear . HSV , HIV negative MRI spine showed no cord compression , T11 lesion Neurology and neurosurgery consults appreciated No surgical interventions at present Received 3 sessions of plasmaphresis and presently showing neurological improvement in the power , sensation to RLE.With fecal incontinence Will need 2 more sessions of plasmaphresis as per neurology. Hold plasmaphresis if fibrinogen is less [id number] as per hematology . Fibrinogen 51 ->78 -> 81 today , repeat again tomorrow Discontinued acyclovir, HSV negative Continue Dexamethasone CT chest abdomen and pelvis showed no malignancy paraneoplastic work up negative so far Keep Lakhani in place for now PT reports slowling improving gait, but still with limited RS hip flexion. Improved weight bearing on right lower extremity. Still c/o right foot pain on WB today. Will obtain right foot x ray 2. DVT prophylaxis SCDs
--- NOTE | 2018-05-21 19:01 | RAD ---
Date of service: 05/21/2018 PROCEDURE: Right Foot Radiographs. HISTORY: right sided foot pain COMPARISON: None. FINDINGS: BONES: No acute fracture. Old healed fracture mid 2nd metatarsal diaphysis. JOINTS: Normal. SOFT TISSUES: Radiopaque foreign body in the plantar soft tissues beneath head of 1st metatarsal. OTHER FINDINGS: None. IMPRESSION: No acute fracture. Radiopaque foreign body in plantar soft tissues of foot.
--- NOTE | 2018-05-22 08:32 | CP.PCM.PN ---
Subjective - Date & Time of Evaluation Date of Evaluation: 05/22/18 Time of Evaluation: 11:30 - Subjective Subjective: Patient seen and examined bedside. Feeling better . Power and numbness to RLE has improved . Able to have bowel and rectal sphincter control Lakhani in place Hemodynamically stable, afebrile. No acute issues overnight. Participating with PT Objective - Vital Signs/Intake and Output Vital Signs (last 24 hours): Temp Pulse Resp BP Pulse Ox 98.2 F 70 19 129/70 97 05/22/18 07:54 05/22/18 07:54 05/22/18 07:54 05/22/18 07:54 05/22/18 07:54 Intake and Output: 05/22/18 05/22/18 06:59 18:59 Output Total 1100 Balance -1100 - Medications Medications: Current Medications Acetaminophen (Tylenol 325mg Tab) 650 mg PO Q6 PRN PRN Reason: Pain, Mild (1-3) Last Admin: 05/20/18 22:01 Dose: 650 mg Dexamethasone (Decadron Inj) 10 mg IVP Q12 [facility] Last Admin: 05/21/18 22:00 Dose: 10 mg Ondansetron HCl (Zofran Inj) 4 mg IVP Q6 PRN PRN Reason: Nausea/Vomiting Pantoprazole Sodium (Protonix Ec Tab) 40 mg PO DAILY [facility] Last Admin: 05/21/18 08:46 Dose: 40 mg - Labs Labs: 05/21/18 05:30 05/21/18 05:30 PT 10.4 Seconds (9.8-13.1) 05/10/18 14:10 INR 0.9 05/10/18 14:10 APTT 32.0 Seconds (25.6-37.1) 05/10/18 14:10 - Constitutional Appears: Non-toxic, No Acute Distress - Head Exam Head Exam: ATRAUMATIC, NORMAL INSPECTION, NORMOCEPHALIC - Eye Exam Eye Exam: EOMI, Normal appearance, PERRL Pupil Exam: NORMAL ACCOMODATION - ENT Exam ENT Exam: Mucous Membranes Moist, Normal Exam - Neck Exam Neck Exam: Full ROM, Normal Inspection - Respiratory Exam Respiratory Exam: Clear to Ausculation Bilateral, NORMAL BREATHING PATTERN. absent: Rales, Rhonchi, Wheezes - Cardiovascular Exam Cardiovascular Exam: REGULAR RHYTHM, RRR, +S1, +S2. absent: JVD - GI/Abdominal Exam GI & Abdominal Exam: Soft, Normal Bowel Sounds. absent: Distended, Guarding, Tenderness, Rebound - Rectal Exam Rectal Exam: Deferred - Extremities Exam Extremities Exam: Full ROM, Normal Capillary Refill, Normal Inspection. absent : Calf Tenderness, Pedal Edema - Back Exam Back Exam: NORMAL INSPECTION. 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 At that time he began having numbness/ parasthesia radiating down his right buttock and the entirety of his anterior and posterior right leg. He also began having left leg electric shooting pain pain. He denied any saddle anesthesia however unable to void .He also gave history of herniated disc and sciatica for the last 4 years on and off. In the ED, patient was noted to have urinary retention and Lakhani catheter was inserted draining 1600 cc of urine.MRI of the lumbar spine and CT thoracic spine were performed and Dexamethasone was given. There was disc hernation noted on lumbar MRI, however there was no cord compression identified. Both Neurology and neurosurgery were consulted from the ED. At this time there is no surgical intervention planned. MRI thoracic spine showed some T11 lesion possible demyelinating process. At present still some numbness and weakness to RLE, but better . Unable to control bowel movements and urine. Received 3 sessions of plasmaphresis for possible transverse myelitis and neurologically improving. Plasmapheresis now on hold due to low fibrinogen levels. 1. Right leg paresthesia ,weakness with acute urinary retention Unknown etiology at present but most likely Transverse myelitis LP performed was clear . HSV , HIV negative MRI spine showed no cord compression , T11 lesion Neurology and neurosurgery consults appreciated No surgical interventions at present Received 3 sessions of plasmaphresis and presently showing neurological improvement in the power , sensation to RLE.Able to control recatal Will hold pladsmaphresis jayna down Decadron Will start bladder training today participating with PT plan for d/c with outpatient therapy 2. DVT prophylaxis SCDs
--- NOTE | 2018-05-22 08:40 | CP.PCM.PN ---
Subjective - Date & Time of Evaluation Date of Evaluation: 05/22/18 Time of Evaluation: 08:39 - Subjective Subjective: Mr. Ahmadi was seen and examined at the bedside. He remains alert, awake.He mainly speaks Swedish, staff writer utilized ( Maxime Cheryl). He further claims of the right leg weakness with minimal pain with pain scale 2/10. He claims of x-ray was done yesterday, but participates with physical therapy. Plasmaphesis was not done due to low level of fibrinogen. His right leg remains with + sensation and minimal movement. There was no untoward events overnight. Objective - Vital Signs/Intake and Output Vital Signs (last 24 hours): Temp Pulse Resp BP Pulse Ox 98.2 F 70 19 129/70 97 05/22/18 07:54 05/22/18 07:54 05/22/18 07:54 05/22/18 07:54 05/22/18 07:54 Intake and Output: 05/22/18 05/22/18 06:59 18:59 Output Total 1100 Balance -1100 - Medications Medications: Current Medications Acetaminophen (Tylenol 325mg Tab) 650 mg PO Q6 PRN PRN Reason: Pain, Mild (1-3) Last Admin: 05/20/18 22:01 Dose: 650 mg Dexamethasone (Decadron Inj) 10 mg IVP Q12 [facility] Last Admin: 05/21/18 22:00 Dose: 10 mg Ondansetron HCl (Zofran Inj) 4 mg IVP Q6 PRN PRN Reason: Nausea/Vomiting Pantoprazole Sodium (Protonix Ec Tab) 40 mg PO DAILY [facility] Last Admin: 05/21/18 08:46 Dose: 40 mg - Labs Labs: 05/21/18 05:30 05/21/18 05:30 PT 10.4 Seconds (9.8-13.1) 05/10/18 14:10 INR 0.9 05/10/18 14:10 APTT 32.0 Seconds (25.6-37.1) 05/10/18 14:10 - Constitutional Appears: No Acute Distress - Head Exam Head Exam: NORMAL INSPECTION - Eye Exam Pupil Exam: PERRL - Neurological Exam Neurological Exam: Alert, Awake, Oriented x3 Neuro motor strength exam: Left Upper Extremity: 5, Right Upper Extremity: 5, Left Lower Extremity: 5, Right Lower Extremity: 2/1 Additional comments: neurological unchanged from previous examination. Assessment and Plan (1) Myelitis Assessment & Plan: Continue all current medical and physical therapies.Recommend any orders from hematology, monitor neuro check, hydration, treat any electrolyte abnormalities. Status: Acute
[2018-05-22] MEDS: Pantoprazole 40 mg EC Tab PO SCH (09:18)
[2018-05-23 07:20] LABS: HEMOGLOBIN 14.2 g/dL (12.0-18.0); MEAN CELL VOLUME 92.3 fl (80.0-94.0); MEAN CORPUSCULAR HEMOGLOBIN 30.8 pg (27.0-31.0); MEAN CORPUSCULAR HGB CONC 33.3 g/dL (33.0-37.0); RBC 4.62 Mil/uL (4.40-5.90); RED CELL DISTRIBUTION WIDTH 13.8 % (11.5-14.5); WHITE BLOOD COUNT 11.7 K/uL (4.8-10.8)
[2018-05-23 07:33] LABS: BLOOD UREA NITROGEN 20 mg/dl (9-20); GFR NON-AFRICAN AMERICAN > 60
--- NOTE | 2018-05-23 08:33 | CP.PCM.DIS ---
Provider - Provider Date of Admission: 05/10/18 18:13 Attending physician: Thang Armstrong DO Primary care physician: none Consults: neurology consult anesthesiology consult neurosurgery consult PT consult urology consult surgery consult Time Spent in preparation of Discharge (in minutes): 15 Hospital Course - Lab Results Lab Results: Micro Results 05/11/18 09:15 Cerebral Spinal Fluid Gram Stain - Final 05/11/18 09:15 Cerebral Spinal Fluid CSF Culture - Final No growth. Most Recent Lab Values WBC 11.7 K/uL (4.8-10.8) H 05/23/18 05:30 RBC 4.62 Mil/uL (4.40-5.90) 05/23/18 05:30 Hgb 14.2 g/dL (12.0-18.0) 05/23/18 05:30 Hct 42.7 % (35.0-51.0) 05/23/18 05:30 MCV 92.3 fl (80.0-94.0) 05/23/18 05:30 MCH 30.8 pg (27.0-31.0) 05/23/18 05:30 MCHC 33.3 g/dL (33.0-37.0) 05/23/18 05:30 RDW 13.8 % (11.5-14.5) 05/23/18 05:30 Plt Count 222 K/uL (130-400) 05/23/18 05:30 MPV 8.1 fl (7.2-11.7) 05/10/18 14:10 Neut % (Auto) 72.3 % (50.0-75.0) 05/10/18 14:10 Lymph % (Auto) 14.2 % (20.0-40.0) L 05/10/18 14:10 O'Brien % (Auto) 11.1 % (0.0-10.0) H 05/10/18 14:10 Eos % (Auto) 2.0 % (0.0-4.0) 05/10/18 14:10 Baso % (Auto) 0.4 % (0.0-2.0) 05/10/18 14:10 Neut # (Auto) 4.9 K/uL (1.8-7.0) 05/10/18 14:10 Lymph # (Auto) 0.9 K/uL (1.0-4.3) L 05/10/18 14:10 O'Brien # (Auto) 0.7 K/uL (0.0-0.8) 05/10/18 14:10 Eos # (Auto) 0.1 K/uL (0.0-0.7) 05/10/18 14:10 Baso # (Auto) 0.0 K/uL (0.0-0.2) 05/10/18 14:10 PT 10.4 Seconds (9.8-13.1) 05/10/18 14:10 INR 0.9 05/10/18 14:10 APTT 32.0 Seconds (25.6-37.1) 05/10/18 14:10 Fibrinogen 93 mg/dl (200-400) L* 05/23/18 05:30 Sodium 135 mmol/l (132-148) 05/23/18 05:30 Potassium 4.1 MMOL/L (3.6-5.0) 05/23/18 05:30 Chloride 101 mmol/L (98-107) 05/23/18 05:30 Carbon Dioxide 26 mmol/L (22-30) 05/23/18 05:30 Anion Gap 12 (10-20) 05/23/18 05:30 BUN 20 mg/dl (9-20) 05/23/18 05:30 Creatinine 0.5 mg/dl (0.8-1.5) L 05/23/18 05:30 Est GFR ( Amer) > 60 05/23/18 05:30 Est GFR (Non-Af Amer) > 60 05/23/18 05:30 Random Glucose 92 mg/dL (75-110) 05/23/18 05:30 Calcium 9.0 mg/dL (8.4-10.2) 05/23/18 05:30 Phosphorus 4.4 mg/dl (2.5-4.5) 05/13/18 05:55 Magnesium 2.1 MG/DL (1.6-2.3) 05/13/18 05:55 Total Bilirubin 0.5 mg/dl (0.2-1.3) 05/18/18 05:30 AST 27 U/L (17-59) 05/18/18 05:30 ALT 42 U/L (21-72) 05/18/18 05:30 Alkaline Phosphatase 27 U/L (38-126) L D 05/18/18 05:30 Total Protein 5.7 G/DL (6.3-8.2) L 05/18/18 05:30 Albumin 4.0 g/dL (3.5-5.0) 05/18/18 05:30 Globulin 1.7 gm/dL (2.2-3.9) L 05/18/18 05:30 Albumin/Globulin Ratio 2.4 (1.0-2.1) H 05/18/18 05:30 Vitamin B12 257 pg/mL (239-931) 05/11/18 18:47 Methylmalonic Acid 273 nmol/L (87-318) 05/11/18 18:47 Urine Color Yellow (YELLOW) 05/10/18 16:43 Urine Clarity Slighty-cloudy (Clear) 05/10/18 16:43 Urine pH 6.0 (5.0-8.0) 05/10/18 16:43 Ur Specific [place]sworth 1.026 (1.003-1.030) 05/10/18 16:43 Urine Protein Negative mg/dL (NEGATIVE) 05/10/18 16:43 Urine Glucose (UA) Neg mg/dL (Normal) 05/10/18 16:43 Urine Ketones Negative mg/dL (NEGATIVE) 05/10/18 16:43 Urine Blood Negative (NEGATIVE) 05/10/18 16:43 Urine Nitrate Negative (NEGATIVE) 05/10/18 16:43 Urine Bilirubin Negative (NEGATIVE) 05/10/18 16:43 Urine Urobilinogen 2.0 mg/dL (0.2-1.0) 05/10/18 16:43 Ur Leukocyte Esterase Neg Genna/uL (Negative) 05/10/18 16:43 Urine RBC (Auto) 3 /hpf (0-3) 05/10/18 16:43 Urine Microscopic WBC 1 /hpf (0-5) 05/10/18 16:43 Ur Squamous Epith Cells < 1 /hpf (0-5) 05/10/18 16:43 Urine Bacteria Rare (<OCC) 05/10/18 16:43 Fluid Type Spinal fluid 05/11/18 09:15 CSF Volume 1 mL (0-1) 05/11/18 09:15 CSF Appearance Clear/colorless (CLEAR) 05/11/18 09:15 CSF WBC 1.0 /mm3 (0.0-5.0) 05/11/18 09:15 CSF RBC 6.0 /mm3 (0.0-0.0) H 05/11/18 09:15 CSF Total Cell Counted TEST NOT PERFORMED 05/11/18 09:15 CSF Neutrophils 0 % (0-0) 05/11/18 09:15 CSF Lymphocytes 0.0 % (0-0) 05/11/18 09:15 CSF Monos/Macrophages 0 % (0-0) 05/11/18 09:15 CSF Comment No cells seen on cyt 05/11/18 09:15 CSF Glucose 76 mg/dL (40-70) H 05/11/18 09:15 CSF Total Protein 36 mg/dL (15-45) 05/11/18 09:15 CSF Prealbumin 3.2 % (1.3-6.9) 05/11/18 09:15 CSF Albumin 51.7 % (51.9-67.8) L 05/11/18 09:15 CSF Axwui-6-Knpckcas 4.5 % (1.8-6.5) 05/11/18 09:15 CSF Uiflt-6-Zjlgcwfq 6.0 % (4.6-10.8) 05/11/18 09:15 CSF Beta Globulin 16.6 % (7.8-18.2) 05/11/18 09:15 CSF Gamma Globulin 18.0 % (4.8-17.6) H 05/11/18 09:15 CSF PEP Interpret see note 05/11/18 09: CSF IgG/Serum IgG 3.4 mg/dL (0.8-7.7) 05/11/18 09:15 CSF VDRL Titer TEST NOT PERFORMED 05/11/18 09:15 CSF VDRL Nonreactive (Nonreactive) 05/11/18 09:15 SS-A Antibody <1.0 AI (<1.0) 05/11/18 18: SS-B Ab Interp Negative (Negative) 05/11/18 18: SS-B Antibody <1.0 AI (<1.0) 05/11/18 18:47 SS-B Ab Interp Negative (Negative) 05/11/18 18: Anti-HU Antibody Titer TNP 08/13/18 18:47 Anti-Hu Antibody Fluorescence noted (NEGATIVE) H 05/11/18 18:47 Anti-Hu Ab (West Blot) Negative (NEGATIVE) 05/11/18 18:47 HSV Source Description Csf 05/11/18 09:15 HSV I DNA PCR Not detected (Not Detected) 05/11/18 09:15 HSV II DNA PCR Not detected (Not Detected) 05/11/18 09:15 HIV-1 Ab Rapid Screen Non reactive (NON REAC) 05/11/18 18:47 Blood Type O POSITIVE 05/13/18 05:10 Blood Type Confirm O POSITIVE 05/10/18 15:14 Antibody Screen Negative 05/13/18 05:10 BBK History Checked Patient has bt 05/13/18 05:10 - Hospital Course Hospital Course: 52 yo male with no significant past medical history presented with sudden complaint of two days of bilateral lower back pain 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 At that time he began having numbness/ parasthesia radiating down his right buttock and the entirety of his anterior and posterior right leg. He also began having left leg electric shooting pain pain. He denied any saddle anesthesia however unable to void .He also gave history of herniated disc and sciatica for the last 4 years on and off. In the ED, patient was noted to have urinary retention and Lakhani catheter was inserted draining 1600 cc of urine.MRI of the lumbar spine and CT thoracic spine were performed and Dexamethasone was given. There was disc hernation noted on lumbar MRI, however there was no cord compression identified. Both Neurology and neurosurgery were consulted from the ED. At this time there is no surgical intervention planned. MRI thoracic spine showed some T11 lesion possible demyelinating process. After discussion with neurologist it was thought patient to have transverse myelitis and plasmaphresis was performed, total 3 sessions.Patient neurologically showed improvement in numbness and power to RLE.He strating having bowel control and having bowel control He is ambulating with walker Will jayna Dexamethaosne and d/c patient home with outpatient PT 1. Right leg paresthesia ,weakness with acute urinary retention most likely secondary to transverse myelitis Unknown etiology LP performed was clear . HSV , HIV negative MRI spine showed no cord compression , T11 lesion Neurology and neurosurgery consults appreciated No surgical interventions at present Received 3 sessions of plasmaphresis and presently showing neurological improvement in the power , sensation to RLE.Able to control rectal sphincter and bladder control Discussed with neuro .Will jayna down Decadron and d/c me nimco with outpatient PT Discharge Exam - Head Exam Head Exam: ATRAUMATIC, NORMAL INSPECTION, NORMOCEPHALIC - Eye Exam Eye Exam: EOMI, Normal appearance, PERRL Pupil Exam: NORMAL ACCOMODATION - ENT Exam ENT Exam: Mucous Membranes Moist, Normal Exam - Neck Exam Neck exam: Full Rom, Normal Inspection - Respiratory Exam Respiratory Exam: Clear to PA & Lateral, NORMAL BREATHING PATTERN. absent: Rales, Rhonchi, Wheezes - Cardiovascular Exam Cardiovascular Exam: REGULAR RHYTHM, RRR, +S1, +S2. absent: JVD - GI/Abdominal Exam GI & Abdominal Exam: Normal Bowel Sounds, Soft. absent: Distended, Guarding, Rebound, Tenderness - Rectal Exam Rectal Exam: Deferred - Extremities Exam Extremities exam: normal capillary refill, normal inspection, pedal pulses present - Back Exam Back exam: NORMAL INSPECTION - Neurological Exam Neurological exam: Alert, CN II-XII Intact, Oriented x3 Additional comments: RLE 4/5 power - Psychiatric Exam Psychiatric exam: Normal Affect, Normal Mood - Skin Skin Exam: Dry, Intact, Normal Color, Warm Discharge Plan - Discharge Medications Prescriptions: Dexamethasone [Decadron] 4 mg PO Q12 #9 tab - Follow Up Plan Condition: STABLE Disposition: HOME/ ROUTINE Instructions: Low Back Pain (DC), Urinary Retention (DC) Referrals: Luis Alfredo Sheehan MD [Staff Provider] - Smith Bolton MD [Medical Doctor] -
[2018-05-23] MEDS: Pantoprazole 40 mg EC Tab PO SCH (09:17)
[2018-05-23 16:36] VITALS: BP 123/69; PULSE 75; RESP 19; TEMP 97.7; O2SAT 95
--- NOTE | 2018-05-24 09:24 | RAD ---
Date of service: 05/23/2018 PROCEDURE: CHEST RADIOGRAPH, 1 VIEW HISTORY: Chest pain post HD catheter removal COMPARISON: Comparison made with CT chest dated 05/14/2018 keyGlendye available. FINDINGS: LUNGS: Clear. PLEURA: No pneumothorax or pleural fluid seen. CARDIOVASCULAR: Normal. OSSEOUS STRUCTURES: No significant abnormalities. VISUALIZED UPPER ABDOMEN: Normal. OTHER FINDINGS: None. IMPRESSION: No active disease.
--- NOTE | 2018-05-26 12:11 | CARD ---
APPROVED REPORT Date of service: 05/23/2018 EKG Measurement Heart [id number] <Conclusion> Sinus rhythm normal ECG
== END 2018-05-23 21:04 | disposition home or self-care (01) | DRG 99 ==
LOC: H.ER 12:58 → H.ERHOLD 18:13 → H.MEDSURG1 20:13
PROVIDERS: ADMIT Internal Medicine; ATTEND Internal Medicine
PROC: 009U3ZX Drainage of Spinal Canal, Percutaneous Approach, Diagnostic (ICD-10-PCS; principal; 2018-05-12)
PROC: 05HM33Z Insertion of Infusion Device into Right Internal Jugular Vein, Percutaneous Approach (ICD-10-PCS; 2018-05-14)
PROC: 6A551Z3 Pheresis of Plasma, Multiple (ICD-10-PCS; 2018-05-15)
DX: G37.3 Acute transverse myelitis in demyelinating disease of central nervous system (principal); K59.00 Constipation, unspecified; R20.2 Paresthesia of skin; R20.0 Anesthesia of skin; R33.9 Retention of urine, unspecified; M51.16 Intervertebral disc disorders with radiculopathy, lumbar region; F17.210 Nicotine dependence, cigarettes, uncomplicated; R15.9 Full incontinence of feces; M79.671 Pain in right foot; Z89.012 Acquired absence of left thumb; N31.9 Neuromuscular dysfunction of bladder, unspecified